=== PATIENT | female | born 1955 | race Caucasian/White ===

== ENCOUNTER → 2017-02-25 | Outpatient (REF) | payer OTHER ==
[~2017-02-25] MED LIST: CALCTAB93; DILANTIN PO; MULTIVITAMIN PO; VITAMIN C PO
== END ==
LOC: M LAB REF 17:26
PROVIDERS: ATTEND Nurse Practitioner Family
DX: M25.50 Pain in unspecified joint (principal)

== ENCOUNTER → 2017-08-16 | Outpatient (REF) | payer OTHER | LOC: M LAB REF 16:46 | PROVIDERS: ATTEND Family Medicine | DX: G40.409 Other generalized epilepsy and epileptic syndromes, not intractable, without status epilepticus (principal) ==

== ENCOUNTER → 2018-02-21 | Outpatient (REF) | payer OTHER ==
[2018-02-21 17:03] LABS: ALKALINE PHOSPHATASE 201 U/L (45-117); GAMMA GLUTAMYLTRANSPEPTIDASE 79 U/L (5-55)
[2018-02-21 17:45] LABS: % LABILE ALKALINE PHOSPHATASE 69.2 %; LABILE ALKPHOS 139 U/L; STABLE ALKPHOS 62 U/L
== END ==
LOC: M LAB REF 16:22
DX: R74.8 Abnormal levels of other serum enzymes (principal)

== ENCOUNTER → 2018-06-30 | Outpatient (REF) | payer OTHER ==
[2018-07-02 15:03] LABS: HPV HYBRID CAPTURE II Negative (Negative)
== END ==
LOC: M SFHCWAGY 11:28
DX: Z12.4 Encounter for screening for malignant neoplasm of cervix (principal)

== ENCOUNTER → 2018-08-27 | Outpatient (REF) | payer OTHER ==
[2018-08-27 13:42] LABS: PHENYTOIN (DILANTIN) 13.5 UG/ML (10.0-20.0)
[2018-08-29 00:06] LABS: LAMOTRIGINE (LAMICTAL) None Detected ug/mL (2.0-20.0)
== END ==
LOC: M LAB REF 12:05
DX: G40.89 Other seizures (principal)
CPT/HCPCS: 80185

== ENCOUNTER → 2019-06-03 | Outpatient (REF) | LOC: M LAB LCGH 10:53 | PROVIDERS: ATTEND Nurse Practitioner Family | DX: D23.0 Other benign neoplasm of skin of lip (principal); D23.72 Other benign neoplasm of skin of left lower limb, including hip ==

== ENCOUNTER → 2019-06-16 | Outpatient (CLI) | payer MEDICARE, OTHER ==
[2019-06-16 13:18] LABS: BLOOD UREA NITROGEN 16 MG/DL (7-18); CREATININE FOR GFR 0.74 MG/DL (0.55-1.30); GLOMERULAR FILTRATION RATE > 60.0 (>45)
== END ==
LOC: M LAB 12:12
PROVIDERS: ATTEND Surgery
DX: Z01.818 Encounter for other preprocedural examination (principal)

== ENCOUNTER → 2019-06-18 | Outpatient (CLI) | payer MEDICARE, OTHER ==
[~2019-06-18] MED LIST changes: +GASTROGRAFIN SOLUTION 30ML (Q9963) As Ordered ONE; +ISOVUE-370 76% 100ML VIAL (Q9967) As Ordered ONE
--- NOTE | 2019-06-18 15:18 | REP ---
REASON FOR EXAM: Abdominal pain. There are no priors for comparison. CONTRAST: 100 mL Isovue 370. The lung bases are clear. There is a small round focal area of low density seen in the left lobe of the liver lateral segment which measures 8 mm and shows no evidence of contrast enhancement. In the anterior segment of the right lobe of the liver medially there is a round low density structure which measures 1.9 cm in diameter. This shows no evidence of contrast enhancement. In the posterior segment of the right lobe of the liver medially there is a small 7 mm sized focal area of low density which is too small for precise CT characterization. It too shows no evidence of definite contrast enhancement. The larger of the two low density lesions have water density Hounsfield unit readings. There are no enhancing hepatic lesions. The gallbladder, spleen, pancreas, adrenal glands, and kidneys are within normal limits. Incidental note is made of a tiny nonenhancing focal area of low density in the inferior pole of the right renal cortex consistent with a tiny simple cortical cyst. The abdominal aorta and paraaortic regions are within normal limits. The bowel loops and their mesenteries are within normal limits. There is no free fluid or free air. There is colonic redundancy and the colon is content filled. CT PELVIS: There is marked colonic redundancy. The colon is content filled. There is no free fluid or free air. There is no evidence of a mass or adenopathy. Bone window technique throughout the exam shows the osseous structures to be within normal limits for the patient's age. IMPRESSION: There is no evidence of acute intra-abdominal or intrapelvic disease. Hepatic and renal cysts as described above. Electronically Signed by Kvng Ott DO 06/18/2019 04:43 P
== END ==
LOC: M RAD 08:28
PROVIDERS: ATTEND Surgery
DX: R10.84 Generalized abdominal pain (principal); K76.89 Other specified diseases of liver; N28.1 Cyst of kidney, acquired
CPT/HCPCS: 74177; Q9963; Q9967

== ENCOUNTER → 2019-09-25 | Outpatient (REF) | payer MEDICARE, OTHER ==
[~2019-09-25] MED LIST changes: -GASTROGRAFIN SOLUTION 30ML (Q9963) As Ordered ONE; -ISOVUE-370 76% 100ML VIAL (Q9967) As Ordered ONE
== END ==
LOC: M LAB REF 09:18
PROVIDERS: ATTEND Dermatology
DX: C44.529 Squamous cell carcinoma of skin of other part of trunk (principal); L81.4 Other melanin hyperpigmentation
CPT/HCPCS: 11102; 11103; 17000; 17003; 17110; 88305; G0463

== ENCOUNTER → 2019-10-14 | Outpatient (REF) | payer MEDICARE, OTHER | LOC: M LAB REF 09:09 | PROVIDERS: ATTEND Dermatology | DX: D04.5 Carcinoma in situ of skin of trunk (principal) ==

== ENCOUNTER → 2020-05-02 | Outpatient (REF) | payer MEDICARE, OTHER | LOC: M LAB REF 10:03 | PROVIDERS: ATTEND Family Medicine | DX: E07.9 Disorder of thyroid, unspecified (principal) ==

== ENCOUNTER → 2021-05-24 | Outpatient (CLI) | payer MEDICARE, OTHER ==
[~2021-05-24] MED LIST changes: +DILA100C PO; +LAMI25TA PO
== END ==
LOC: M LABSMTC 10:47
PROVIDERS: ATTEND Anesthesiology
DX: Z01.818 Encounter for other preprocedural examination (principal); Z11.52 Encounter for screening for COVID-19

== ENCOUNTER 2021-05-26 10:32 | Day surgery (SDC) | payer MEDICARE, OTHER ==
[~2021-05-26] VITALS: Ht 165.1 cm; Wt 56.2 kg
[~2021-05-26 10:32] MED LIST changes: +BSS IRR 500ML/OMIDRIA 4ML IRR BAG (OR ONLY) As Ordered ONE; +BSS IRR 500ML/OMIDRIA 4ML IRR BAG (OR ONLY) IO ONE; +CEFUROXIME 1MG/0.1ML INTRACAMERAL INJ As Ordered ONE; +CEFUROXIME 1MG/0.1ML INTRACAMERAL INJ ICAM ONE; +DUOVISC (0.50ML VISCOAT/0.85ML PROVISC) OPHTH KIT As Ordered ONE; +LIDOCAINE 1% SDV 5ML VIAL As Ordered ONE; +PROPARACAINE 0.5% OPHTH SOL 15ML OS ONE
[2021-05-26] MEDS: PHENYLEPHRINE 2.5% OPHTH SOL 2ML OS SCH ×3 (12:55→13:30)
[2021-05-26] MEDS: OFLOXACIN 0.3 % (OCUFLOX) OPTH SOL 5ML OS SCH ×3 (12:55→13:30)
[2021-05-26] MEDS: TROPICAMIDE 1% OPHTH SOLN 2ML OS SCH ×3 (12:55→13:30)
[2021-05-26] MEDS ORDERED: MIDAZOLAM INJ 2MG/2ML VIAL (J2250 PER 1MG) As Ordered ONE (13:20)
[2021-05-26 14:55] VITALS: BP 122/62
--- NOTE | 2021-05-26 15:42 | ROOPDOC ---
[facility] Report Of Operation Report of Operation DATE OF PROCEDURE: May PREPROCEDURE DIAGNOSES: Mature cataract left eye. POSTPROCEDURE DIAGNOSES: Same. PROCEDURE PERFORMED: Phacoemulsification cataract extraction implantation intraocular lens left eye. SURGEON: Bubba Bell MD MARBLE AND GRANITE POLISHER: None ANESTHESIA: MAC. ESTIMATED BLOOD LOSS: Approximately 0 cc mL. COMPLICATIONS: None. LENS: 20.0. diopters SPECIMENS REMOVED: None INDICATIONS: Patient experienced decreased vision associated with cataract formation. Slit-lamp examination confirmed the diagnosis. Informed consent was obtained for removal of the cataract and placement of intraocular lens. PROCEDURE NOTE: Patient was identified in the holding room and the operative eye was marked. Patient was wheeled spine the OR suite and positioned on the stretcher. The lids lashes and periocular face of the operative eye were prepped with 5% povidone iodine. The lashes were taped with a Tegaderm dressin g. A speculum was placed in the operative eye. 1 mm side-port was created. 1% preservative-free lidocaine was injected. Viscoat was injected. A 2.6 mm stepped groove clear cornea incision was made temporally. A bent cystotome needle and Utrata forceps were used to fashion a continuous curvilinear capsulorhexis. BSS was used to hydrodissect. The lens was found to rotate free ly. The lens was phacoemulsified using a divide and conquer technique. Residual cortex was removed with the I/A. Provisc was injected to expand the capsular bag. The lens was injected using the lens delivery system and positioned with a Mele hook. Residual viscoelastic was removed with the I/A. BSS was used to hydrate the corneal wound. Antibiotic prophylaxis was injected. The speculum was removed from the eye. A shield was taped over the eye. The patient was sent in excellent condition to the recovery room with a shield. BUBBA BELL M.D. May 26, 2021 15:42
[2021-06-01] MEDS ORDERED: KETO0.3S (07:51)
[2021-06-01] MEDS ORDERED: PREDOPD (07:51)
[2021-06-01] MEDS ORDERED: POLY2.5S (07:51)
== END 2021-05-26 14:22 | disposition home or self-care (01) ==
LOC: M SDC 10:32
PROVIDERS: ATTEND Ophthalmology
DX: H25.12 Age-related nuclear cataract, left eye (principal); M19.049 Primary osteoarthritis, unspecified hand; M54.9 Dorsalgia, unspecified; Z87.828 Personal history of other (healed) physical injury and trauma; G40.409 Other generalized epilepsy and epileptic syndromes, not intractable, without status epilepticus; J30.9 Allergic rhinitis, unspecified; E07.9 Disorder of thyroid, unspecified; E55.9 Vitamin D deficiency, unspecified; K59.00 Constipation, unspecified; Z88.2 Allergy status to sulfonamides; Z79.899 Other long term (current) drug therapy; Z88.1 Allergy status to other antibiotic agents; Z85.828 Personal history of other malignant neoplasm of skin
CPT/HCPCS: 66984; J1097; J2250; V2632

== ENCOUNTER → 2021-06-05 | Outpatient (CLI) | payer MEDICARE, OTHER ==
[~2021-06-05] MED LIST changes: -BSS IRR 500ML/OMIDRIA 4ML IRR BAG (OR ONLY) As Ordered ONE; -BSS IRR 500ML/OMIDRIA 4ML IRR BAG (OR ONLY) IO ONE; -CEFUROXIME 1MG/0.1ML INTRACAMERAL INJ As Ordered ONE; -CEFUROXIME 1MG/0.1ML INTRACAMERAL INJ ICAM ONE; -DUOVISC (0.50ML VISCOAT/0.85ML PROVISC) OPHTH KIT As Ordered ONE; +KETO0.3S; -LIDOCAINE 1% SDV 5ML VIAL As Ordered ONE; +POLY2.5S; +PREDOPD; -PROPARACAINE 0.5% OPHTH SOL 15ML OS ONE
== END ==
LOC: M LABSMTC 09:13
PROVIDERS: ATTEND Anesthesiology
DX: Z01.818 Encounter for other preprocedural examination (principal); Z11.52 Encounter for screening for COVID-19; L82.0 Inflamed seborrheic keratosis; L91.8 Other hypertrophic disorders of the skin; L72.0 Epidermal cyst; L57.0 Actinic keratosis; Z85.89 Personal history of malignant neoplasm of other organs and systems
CPT/HCPCS: 17000; 17003; 17110; U0003

== ENCOUNTER 2021-06-09 09:32 | Day surgery (SDC) | payer MEDICARE, OTHER ==
[~2021-06-09] VITALS: Ht 165.1 cm; Wt 55.7 kg
[~2021-06-09 09:32] MED LIST changes: +BSS IRR 500ML/OMIDRIA 4ML IRR BAG (OR ONLY) As Ordered ONE; +CEFUROXIME 1MG/0.1ML INTRACAMERAL INJ As Ordered ONE; +DUOVISC (0.50ML VISCOAT/0.85ML PROVISC) OPHTH KIT As Ordered ONE; +LIDOCAINE 1% SDV 5ML VIAL As Ordered ONE; +PROPARACAINE 0.5% OPHTH SOL 15ML OD ONE
[2021-06-09] MEDS: TROPICAMIDE 1% OPHTH SOLN 2ML OD SCH ×3 (10:15→10:31)
[2021-06-09] MEDS: PHENYLEPHRINE 2.5% OPHTH SOL 2ML OD SCH ×3 (10:15→10:31)
[2021-06-09] MEDS: OFLOXACIN 0.3 % (OCUFLOX) OPTH SOL 5ML OD SCH ×3 (10:15→10:31)
[2021-06-09] MEDS ORDERED: CEFUROXIME 1MG/0.1ML INTRACAMERAL INJ As Ordered ONE (11:20)
[2021-06-09] MEDS ORDERED: PHENYLEPHRINE 1.5%/LIDOCAINE 1% INTRAOCULAR 0.8ML SYRINGE As Ordered ONE (11:20)
[2021-06-09] MEDS ORDERED: MIDAZOLAM INJ 2MG/2ML VIAL (J2250 PER 1MG) As Ordered ONE (11:38)
[2021-06-09] MEDS ORDERED: propofoL 200 MG/20 ML VIAL As Ordered ONE (11:38)
[2021-06-09] MEDS ORDERED: fentaNYL 100 MCG/2 ML INJECTION (J3010) As Ordered ONE (11:38)
[2021-06-09 11:55] VITALS: BP 142/71
--- NOTE | 2021-06-13 18:51 | RO ---
OPERATIVE NOTE DATE OF OPERATION: 06/09/2021 PREOPERATIVE DIAGNOSIS: Mature cataract, right eye. POSTOPERATIVE DIAGNOSIS: Mature cataract, right eye. PROCEDURE: Phacoemulsification, cataract extraction and implantation of intraocular lens, right eye. SURGEON: Bubba Santillan M.D. ANESTHESIA: MAC and topical. COMPLICATIONS: None. ESTIMATED BLOOD LOSS: 0 mL. CONDITION: Excellent to recovery room with shield over the right eye. LENS: AcrySof model SN60AT, power 20.0 diopters. Phaco energy is 5.33 CDE. INDICATIONS FOR PROCEDURE: The patient experienced decreased vision associated with cataract formation. This was confirmed with the slit-lamp. Informed consent was obtained for removal of the cataract and placement of the intraocular lens. PROCEDURE NOTE: Prior to entering the operating room, the patient was identified. The right eye was marked and she was wheeled to the OR suite positioned on a stretcher. Anesthesia was initiated. Topical Tetracaine was placed in both eyes. She was prepped and draped with 5% povidone iodine to the lids and lashes. The lashes were taped with Tegaderm and a speculum was placed in the right eye. A 1 mm side port was created at the 11:30 position. 1% preservative free lidocaine was injected. Viscoat was injected. A 2.6 mm stepped, grooved clear corneal incision was made temporally. A bent cystitome needle and Utrata forceps were used to fashion a continuous curvilinear capsulorhexis. BSS was used to hydrodissect. The lens was found to rotate freely. It was phacoemulsified using a yowzyn-wvm-xqcludp technique. Residual cortex was removed with the IA. Provisc was injected to expand the capsular bag. The lens was injected using the lens delivery system and positioned using the Mele hook. Residual viscoelastic was removed with the IA. BSS was used to hydrate the corneal wound. Antibiotic prophylaxis was injected. The speculum was removed from the eye. A shield was taped over the eye. The patient was taken in excellent condition to the recovery room.
== END 2021-06-09 12:20 | disposition home or self-care (01) ==
LOC: M SDC 09:32
PROVIDERS: ATTEND Ophthalmology
DX: H25.11 Age-related nuclear cataract, right eye (principal); G40.909 Epilepsy, unspecified, not intractable, without status epilepticus; Z79.899 Other long term (current) drug therapy; M54.5 Low back pain; Z88.2 Allergy status to sulfonamides
CPT/HCPCS: 66984; J1097; J2250; J3010; V2632

== ENCOUNTER → 2021-07-05 | Outpatient (CLI) | payer MEDICARE, OTHER ==
[~2021-07-05] MED LIST changes: -BSS IRR 500ML/OMIDRIA 4ML IRR BAG (OR ONLY) As Ordered ONE; -CEFUROXIME 1MG/0.1ML INTRACAMERAL INJ As Ordered ONE; -DUOVISC (0.50ML VISCOAT/0.85ML PROVISC) OPHTH KIT As Ordered ONE; -LIDOCAINE 1% SDV 5ML VIAL As Ordered ONE; -PROPARACAINE 0.5% OPHTH SOL 15ML OD ONE
== END ==
LOC: M LABSMTC 09:58
PROVIDERS: ATTEND Anesthesiology
DX: Z01.818 Encounter for other preprocedural examination (principal); Z11.52 Encounter for screening for COVID-19

== ENCOUNTER 2021-07-10 07:29 | Day surgery (SDC) | payer MEDICARE, OTHER ==
[~2021-07-10] VITALS: Ht 167.6 cm; Wt 55.3 kg
[~2021-07-10 07:29] MED LIST changes: +NS 1,000 ML IV ONE
--- OUTSIDE RECORDS SUMMARY | 2021-07-10 07:35 | CCD | Continuity of Care Document ---
Author Author Jem MARTINEZ M.D. Organization Unknown Address [address] [facility] [address] [place] [address] Phone [phone] Care Team Providers Care Senior Applications Architect Name Role Phone Elieser Martinez MD AUTM [phone] [facility] Radiology AUTM [phone] Problems Active Problems Provider Date Seizure Samantha Varner D.O. Onset: 2011 Benign neoplasm of colon Samantha Varner D.O. Onset: 1 09/27/2011 Asthma without status asthmaticus Onset: 07/28/2012 Basal cell carcinoma of truncal skin Elieser Martinez M.D. On set: 09/16/2017 Social History Type Date Description Comments Sex Unknown ETOH Use Occasionally consumes wine ETOH Use Occasionally consumes beer Tobacco Use Start: Unknown Patient has never smoked Allergies, Adverse Reactions, Alerts Active Allergies Criticality Reaction | Severity Comments Date TeQuin Unable to assess criticality 10/12/2010 Bactrim Unable to assess criticality 10/12/2010 Medications Active Medications SIG Qnty Indications Ordering Provide r Date Vitamin C 500mg Tablets 1 by mouth every day Elieser Martinez M.D. 05/09/2021 Multiple Vitamin Tablets by mouth daily 90tabs Elieser Martinez M.D. 02/21/2018 Vitamin D3 High Potency 1000Unit C apsules 1 by mouth every day Morgan Iraheta MD 08/01 Dymista 137-50mcg/Act Suspension one spray each nostril morning and evening 69gm Elieser Martinez M.D. 07/30/2014 Lamictal 25mg Tablets take one tablet by mouth once a day 90tabs Elieser Martinez M.D. 07/28/2012 Dilantin 100mg Capsules take one capsule by mouth three times a day 270caps Elieser Martinez M.D. 09/08/1996 Calcium 600 600mg Tablets 1 by mouth every day Unknown History Medications Boniva 150mg Tablets by mouth monthly on an empty stomach (no food for 30 min after). 3tabs Uriel Martinez M.D. 02/16/2021 - 03/24/2021 Immunizations CPT Code Status Date Vaccine Lot # [id number] Given 07/08/2019 Prevnar 13 U-Flu Given 07/07/2019 Influenza,Unspecified Q2037 Given 08/01/2016 Fluvirin Virus Vaccine 57601 01 Q2037 Given 07/25/2015 Fluvirin Virus Vaccine 80532 01 14265 Given 03/05/2014 Zoster Vaccine 09741 Given 06/23/2010 Influenza Virus Vaccine 02356 Given 08/19/2006 Influenza Virus Vaccine 32884 Given 07/18/1999 Influenza Virus Vaccine Vital Signs Date Vital Result Comment 05/09/2021 1:11pm BP Systolic 126 mmHg BP Diastolic 62 mmHg Heart Rate 64 /min Height 66 inches 5'6" Weight 123.00 lb BMI (Body Mass Index) 19.9 kg/m2 02/16/2021 10:39am BP Systolic 120 mmHg BP Diastolic 68 mmHg Heart Rate 62 /min Height 66 inches 5'6" Weight 125.00 lb BMI (Body Mass Index) 20.2 kg/m2 Results Test Acquired Date Facility Test Result H/L Range Note Laboratory test finding 02/15/2021 [facility] Receiving Team Member: [facility] Morgan Iraheta [place] [id number] [phone] [phone] Free 0.69 ng/dL Low 0.76 - 1.46 Comprehensive Chem Profile 02/15/2021 [facility] Receiving Team Member: Dr Morgan Iraheta [place] [id number] [phone] Glucose 84 mg/dL 74 - 99 1 BUN 19 mg/dL High 7 - 18 Creatinine 0.8 mg/dL 0.6 - 1.3 Sodium 143 mEq/L 136 - 145 Potassium 4.4 mEq/L 3.5 - 5.1 Chloride 105 mEq/L 98 - 107 Carbon Dioxide 35 mEq/L High 21 - 32 Calcium 9.0 mg/dL 8.5 - 10.1 Alk. Phosphatase 152 mg/dL High 46 - 116 Total Bilirubin 0.3 mg/dL 0.2 - 1.0 Ast (Sgot) 23 U/L 15 - 37 Alt (SGPT) 33 U/L 12 - 78 Albumin 4.3 g/dL 3.4 - 5.0 Total Protein 6.7 g/dL 6.4 - 8.2 A/G Ratio 1.79 CALC 1.00 - 1.90 GFR >= 60 mL/min >60 GFR >= 60 mL/min >60 2 Lipid Profile 02/15/2021 [facility]ceiving Team Member: Dr Morgan Iraheta [place] [id number] [phone] Cholesterol 160 mg/dL 131 - 200 Triglycerides 39 mg/dL 30 - 150 HDL Cholesterol 56 mg/dL 35 - 60 LDL (Calculated) 96 CALC 50 - 159 Laboratory test finding 02/15/2021 [facility] Receiving Team Member: Dr Morgan Iraheta [place] [address] [phone] Thyroid Stimulating Hormone 4.74 uIU/mL High 0.3 6 - 3.74 1 100-125 mg/dL PRE-DIABET ES/FASTING >126 mg/dL DIABETES/FASTING 2 CHRONIC KIDNEY DISEASE STAGI NG PER NKF STAGE I & II GFR >= 60 NORMAL TO MILDLY DECREASED STAGE III GFR 30-59 MODERATELY DECREASED STAGE IV GFR 15-29 SEVERELY DECREASED STAGE V GFR <15 VERY LITTLE GFR LEFT ESRD GFR <15 ON RN PLACEMENT Procedures Date Code Description Status 02/16/2021 38904 Office/Outpatient Established Mo d MDM 30-39 Min Completed 10/18/2020 [id number] Bone Mineral Density Test [facility] 04/13/2020 [id number] Mammogram Completed 01/06/2019 [id number] Mammogram Completed 11/25/2018 [id number] Diabetic Retinal Eye Exam [facility] 11/03/2018 [id number] Diabetic Retinal Eye Exam [facility] 12/26/2017 [id number] Mammogram Completed 12/25/2016 [id number] Mammogram Completed 02/01/2016 [id number] Colonoscopy Completed 12/07/2015 [id number] Mammogram Completed 08/17/2015 [id number] Bone Mineral Density Test [facility] 12/01/2014 [id number] Mammogram Completed 11/10/2014 [id number] Colonoscopy Completed 11/23/2013 [id number] Mammogram Completed 11/13/2012 [id number] Mammogram Completed 11/13/2012 [id number] Bone Mineral Density Test [facility] 11/12/2011 [id number] Mammogram Completed 10/16/2010 [id number] Bone Mineral Density Test [facility] 09/30/2009 [id number] Mammogram Completed 09/23/2009 [id number] Colonoscopy Completed Medical Devices Description No Information Available Encounters Type Date Location Provider Dx Diagnosis Office Visit 02/16/2021 10:00a [facility] Elieser Martinez M.D. 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 05/09/2021 H26.9 Unspecified cataract Elieser li M.D. 05/09/2021 E07.9 Disorder of thyroid, unspecified Elieser Martinez M.D. 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 05/09/2021 K59.09 Other constipation Elieser harry M.D. 05/09/2021 J30.9 Allergic rhinitis, unspecified Rupal Martinez M.D. 05/09/2021 M81.0 Age-related osteoporosis without current pathological fracture Elieser Martinez M.D. 05/09/2021 Z85.828 Personal history of other malign ant neoplasm of skin Elieser Martinez M.D. 05/09/2021 Z86.010 Personal history of colonic poly ps Elieser Martinez M.D. 02/16/2021 E78.5 Hyperlipidemia, unspecified Mini Martinez M.D. 02/16/2021 E07.9 Disorder of thyroid, unspecified Elieser Martinez M.D. 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 02/16/2021 K59.09 Other constipation Elieser harry M.D. 02/16/2021 J30.9 Allergic rhinitis, unspecified J evelina Martinez M.D. 02/16/2021 M81.0 Age-related osteoporosis without current pathological fracture Elieser Martinez M.D. 02/16/2021 Z85.828 Personal history of other malign ant neoplasm of skin Elieser Martinez M.D. 02/16/2021 Z86.010 Personal history of colonic poly ps Elieser Martinez M.D. 02/16/2021 Z79.899 Other computer terminal operator (current) drug t herapy Elieser Martinez M.D. 02/16/2021 Z13.89 Encounter for screening for othe r disorder Elieser Martinez M.D. 02/15/2021 E78.5 Hyperlipidemia, unspecified Mini Martinez M.D. 02/15/2021 E78.5 Hyperlipidemia, unspecified Lab Schedule 02/15/2021 E07.9 Disorder of thyroid, unspecified Elieser Martinez M.D. 02/15/2021 E07.9 Disorder of thyroid, unspecified Lab Schedule Plan of Treatment Future Appointment(s):* 08/21/2021 9:30 am - [facility] 05/09/2021 - Elieser Martinez M.D.* Z01.818 Encounter for other preprocedural examination * H26.9 Unspecified cataract * E07.9 Disorder of thyroid, unspecified * G40.409 Oth generalized epilepsy, not intractable, w/o stat epi * K59.09 Other constipation * J30.9 Allergic rhinitis, unspecified * M81.0 Age-related osteoporosis w/o current pathological fracture * Z85.828 Personal history of other malignant neoplasm of skin * Z86.010 Personal history of colonic polyps * Functional Status Description No Information Available Mental Status Description No Information Available Referrals Refer to Dr Reason for Referral Status Appt Date Carlos Prater MD CONSULT FOR SCREENING COLONOSCOPY Oscar lazo Notified 04/18/[address] [place], [place] [address] [phone]
--- OUTSIDE RECORDS SUMMARY | 2021-07-10 07:35 | CCD | Continuity of Care Document ---
Author Author Jem FOSS MD Organization Unknown Address [address] [facility] [address] [place] [address] Phone [phone] Care Team Providers Care Exploitation Analyst Name Role Phone Mikel Yee MD AUTM [phone] Elieser Coffey M.D. AUTM [phone] AUTM Unavailable AUTM Unavailable Problems Description No Information Available Social History Type Date Description Comments Sex Unknown ETOH Use Rarely consumes alcohol Tobacco Use Start: Unknown Denies Smoking Recreational Drug Use Denies Drug Use Allergies and adverse reactions Active Allergies Criticality Reaction | Severity Comments Date Sulfa Unable to assess criticality Itching 06/08/2019 Medications Active Medications SIG Qnty Indications Ordering Provide r Date Fluticasone Propionate 50mcg/Act Suspension 2 sprays both sides once daily 1Month Logan quintero MD 06/19/2021 Lamotrigine 25mg Tablets Take One Tablet By Mouth Every Day Unknown Dilantin 100mg Capsules 3 by mouth daily Unknown Miralax Powder 17 g in 8 oz of water or juice by mouth every day for constipation Unkno wn Immunizations Description No Information Available Vital Signs Date Vital Result Comment 06/19/2021 1:09pm Height 66 inches 5'6" Weight 123.00 lb BMI (Body Mass Index) 19.9 kg/m2 [place] Body Weight 130 lb Weight 55.793 kg BSA (Body Surface Area) 1.63 m2 06/08/2019 1:15pm BP Systolic 120 mmHg BP Diastolic 75 mmHg Heart Rate 62 /min Height 66 inches 5'6" Weight 126.12 lb BMI (Body Mass Index) 20.4 kg/m2 [place] Body Weight 130 lb Weight 57.210 kg BSA (Body Surface Area) 1.64 m2 Results Description No Information Available Procedures Date Code Description Status 06/19/2021 50971 Office/Outpatient New Moderate M DM 45-59 Minutes Completed Medical Devices Description No Information Available Encounters Type Date Location Provider Dx Diagnosis Office Visit 06/19/2021 1:10p [facility] Logan Foss MD H90.3 Sensorineural hearing loss, bilateral J30.9 Allergic rhinitis, unspecifi ed J34.2 Deviated nasal septum Assessments Date Code Description Provider 06/19/2021 H90.3 Sensorineural hearing loss, bila teral Logan Foss MD 06/19/2021 J30.9 Allergic rhinitis, unspecified N ivelisse Foss MD 06/19/2021 J34.2 Deviated nasal septum Logan quintero MD Plan of Treatment 06/19/2021 - Logan Foss MD* H90.3 Sensorineural hearing loss, bilateral * J30.9 Allergic rhinitis, unspecified * J34.2 Deviated nasal septum * All * New Medication:* Fluticasone Propionate 50 mcg/Act - 2 sprays both sides once daily Functional Status Description No Information Available Mental Status Description No Information Available Referrals Refer to Dr Reason for Referral Status Appt Logan Foss M.D. ALLERGIC RHINITIS, FLUID IN EARS Closed 06/19/[address] [address] [phone]
--- OUTSIDE RECORDS SUMMARY | 2021-07-10 07:35 | CCD | Continuity of Care Document ---
Author Author Jem FOSS MD Organization Unknown Address [address] [facility] [address] [place] [address] Phone [phone] Care Team Providers Care Printed Circuit Board Designer Name Role Phone Mikel Yee MD AUTM [phone] Elieser Coffey M.D. AUTM [phone] AUTM Unavailable AUTM Unavailable Problems Description No Information Available Social History Type Date Description Comments Sex Unknown ETOH Use Rarely consumes alcohol Tobacco Use Start: Unknown Denies Smoking Recreational Drug Use Denies Drug Use Allergies, Adverse Reactions, Alerts Active Allergies Criticality [...] lb BMI (Body Mass Index) 19.9 kg/m2 [place] Body Weight 130 lb Weight 55.793 kg BSA (Body Surface Area) 1.63 m2 06/08/2019 1:15pm BP Systolic 120 mmHg BP Diastolic 75 mmHg Heart Rate 62 /min Height 66 inches 5'6" Weight 126.12 lb BMI (Body Mass Index) 20.4 kg/m2 [place] Body Weight 130 lb Weight 57.210 kg BSA (Body Surface Area) 1.64 m2 Results Description No Information Available Procedures Description No Information Available Medical Devices Description No Information Available Encounters Description No Information Available Assessments Description No Information Available Plan of Treatment No Information Available Functional Status Description No Information Available Mental Status Description No Information Available Referrals Refer to Reason for Referral Status Appt Date Logan Foss M.D. ALLERGIC RHINITIS, FLUID IN EARS Scheduled 06/19/[address] [place] [address] [phone]
--- OUTSIDE RECORDS SUMMARY | 2021-07-10 07:35 | CCD | Continuity of Care Document ---
Author Author Jem MARTINEZ M.D. Organization Unknown Address [address] [facility] [address] [place] [address] Phone [phone] Care Team Providers Care Disability Program Navigator Name Role Phone Elieser Martinez MD AUTM [phone] [facility] Radiology AUTM [phone] Problems Active Problems Provider Date Seizure Samantha [...] Influenza,Unspecified Q2037 Given 08/01/2016 Fluvirin Virus Vaccine 95511 01 Q2037 Given 07/25/2015 Fluvirin Virus Vaccine 60016 01 28865 Given 03/05/2014 Zoster Vaccine 91011 Given 06/23/2010 Influenza Virus Vaccine 14200 Given 08/19/2006 Influenza Virus Vaccine 03467 Given 07/18/1999 Influenza Virus Vaccine Vital Signs [...] H/L Range Note Laboratory test finding 02/15/2021 [place] [facility] Forge Shop Supervisor: Dr Morgan Iraheta [place] [address] [phone] T4 Free 0.69 ng/dL Low 0.76 - 1.46 Comprehensive Chem Profile 02/15/2021 [place] [facility] Forge Shop Supervisor: Dr Morgan Iraheta [place], [place] [address] [phone] Glucose 84 mg/dL 74 - 99 1 [...] 60 mL/min >60 2 Lipid Profile 02/15/2021 [place] Forge Shop Supervisor: Dr Morgan Iraheta [place], [place] [address] [phone] Cholesterol 160 mg/dL 131 - 200 Triglycerides 39 mg/dL 30 - 150 HDL Cholesterol 56 mg/dL 35 - 60 LDL (Calculated) 96 CALC 50 - 159 Laboratory test finding 02/15/2021 [place] [employer] [facility] [facility] Forge Shop Supervisor: Dr Morgan Iraheta [place], [place] [address] [phone] Thyroid Stimulating Hormone 4.74 uIU/mL High 0.3 6 - 3.74 1 100-125 mg/dL PRE-DIABET ES/FASTING >126 mg/dL DIABETES/FASTING 2 CHRONIC KIDNEY DISEASE STAGI NG PER NKF STAGE I & II GFR >= 60 NORMAL TO MILDLY DECREASED STAGE III GFR 30-59 MODERATELY DECREASED STAGE IV GFR 15-29 SEVERELY DECREASED STAGE V GFR <15 VERY LITTLE GFR LEFT ESRD GFR <15 ON WEB CONTENT MANAGER Procedures Date Code Description Status 05/09/2021 74833 EKG/Interpretation & Report Comp leted 05/09/2021 80591 Office/Outpatient Established Mo d MDM 30-39 Min Completed 02/16/2021 84960 Office/Outpatient Established Mo d MDM 30-39 Min Completed 10/18/2020 [id number] Bone Mineral Density Test Comple [facility] 04/13/2020 [id number] Mammogram Completed 01/06/2019 [id number] Mammogram Completed 11/25/2018 [id number] Diabetic Retinal Eye Exam Comple [facility] 11/03/2018 [id number] Diabetic Retinal Eye Exam Comple [facility] 12/26/2017 [id number] Mammogram Completed 12/25/2016 [id number] Mammogram Completed 02/01/2016 [id number] Colonoscopy Completed 12/07/2015 [id number] Mammogram Completed 08/17/2015 [id number] Bone Mineral Density Test Comple [facility] 12/01/2014 [id number] Mammogram Completed 11/10/2014 [id number] Colonoscopy Completed 11/23/2013 [id number] Mammogram Completed 11/13/2012 [id number] Mammogram Completed 11/13/2012 [id number] Bone Mineral Density Test Comple [facility] 11/12/2011 [id number] Mammogram Completed 10/16/2010 [id number] Bone Mineral Density Test Comple [facility] 09/30/2009 [id number] Mammogram Completed 09/23/2009 [id number] Colonoscopy Completed Medical Devices Description No Information Available Encounters Type Date Location Provider Dx Diagnosis Office Visit 05/09/2021 [facility] Z01.818 Encounter for other preprocedural examin ation H26.9 Unspecified cataract E07.9 Disorder of thyroid, unspeci fied G40.409 Oth generalized epilepsy, no t intractable, w/o stat epi K59.09 Other constipation J30.9 Allergic rhinitis, unspecifi ed M81.0 Age-related osteoporosis w/o current pathological fracture Z85.828 Personal history of other ma lignant neoplasm of skin Z86.010 Personal history of colonic polyps Office Visit 02/16/2021 10:00a [facility] E78.5 Hyperlipidemia, unspecified E07.9 Disorder of thyroid, unspeci fied G40.409 Oth generalized epilepsy, no t intractable, w/o stat epi K59.09 Other constipation J30.9 Allergic rhinitis, unspecifi ed M81.0 Age-related osteoporosis w/o current pathological fracture Z85.828 Personal history of other ma lignant neoplasm of skin Z86.010 Personal history of colonic polyps Z79.899 Other intermediate card tender (current) dr tran therapy Z13.89 Encounter for screening for other disorder Assessments Date Code Description Provider 05/09/2021 Z01.818 Encounter for other preprocedura l examination Elieser Martinez M.D. 05/09/2021 H26.9 Unspecified cataract Elieser MaverickWilliam li M.D. 05/09/2021 E07.9 Disorder of thyroid, [...] harry M.D. 02/16/2021 J30.9 Allergic rhinitis, unspecified Rupal Martinez M.D. 02/16/2021 M81.0 Age-related osteoporosis without current pathological fracture Elieser Martinez M.D. 02/16/2021 Z85.828 Personal history of other malign ant neoplasm of skin Elieser Martinez M.D. 02/16/2021 Z86.010 Personal history of colonic poly ps Elieser Martinez M.D. 02/16/2021 Z79.899 Other prison (current) drug t herapy Elieser Martinez M.D. 02/16/2021 Z13.89 Encounter for screening for othe r disorder Elieser Martinez M.D. 02/15/2021 E78.5 Hyperlipidemia, unspecified Mini Martinez M.D. 02/15/2021 E78.5 Hyperlipidemia, unspecified Lab Schedule 02/15/2021 E07.9 Disorder of thyroid, unspecified Elieser Martinez M.D. 02/15/2021 E07.9 Disorder of thyroid, unspecified Lab Schedule Plan of Treatment Future Appointment(s):* 08/21/2021 9:30 am - [facility] 02/16/2021 - Elieser Martinez M.D.* E78.5 Hyperlipidemia, unspecified * E07.9 Disorder of thyroid, unspecified * G40.409 Oth generalized epilepsy, not intractable, w/o stat epi * K59.09 Other constipation * J30.9 Allergic rhinitis, unspecified * M81.0 Age-related osteoporosis w/o current pathological fracture * Z85.828 Personal history of other malignant neoplasm of skin * Z86.010 Personal history of colonic polyps * Z79.899 Other prison (current) drug therapy * Z13.89 Encounter for screening for other disorder * * Comments:* 1. Hyperlipidemia: Good results with diet alone, she will continue to watch her diet. We will continue to monitor.2. Thyroid disorder: Subclinical hypothyroidism. Long discussion regarding thyroids. She continues to be quite hesitant to take anything, but she understands prison issues that may be apparent.3. Oth generalized epilepsy, not intractable, w/o stat epi: Great results on her present medications. We will continue to monitor.4. Other constipation: Excellent results with Miralax on a daily basis, will continue and monitor.5. Other intermediate card tender (current) drug therapy: Anti seizure medications continued and we have discussed risks versus benefits.6. Allergic rhinitis: Good results with OTC med as needed.7. Personal history of other malignant neoplasm of skin: She will continue to follow up with [facility] Dermatology with history of BCC.8. Personal history of colonic polyps: Patient had tubular villous polyps in 2016, she will follow up with Dr. Carlos Prater and understands the importance.9. Age-related osteoporosis w/o current pathological fracture: We have discussed her recent DEXA scan result in detail. Education was done. Possible side effects and MOA discussed (Boniva) which she understands.She will use Boniva as directed. We will monitor.Ongoing cares: I am going to see her again in 6 months with CMP, TSH and FT4. If she has new problems or issues sooner she will let us know. Functional Status Description No Information Available Mental Status Description No Information Available Referrals Refer to Reason for Referral Status Appt Date Logan Foss MD CONSULT FOR ALLERGIC RHINITIS, FLUID IN EARS Cr eated [facility] [address] [address] [phone] Carlos Prater MD CONSULT FOR SCREENING COLONOSCOPY Oscar lazo Notified 04/18/2021 [address] [facility] [address] [phone]
--- OUTSIDE RECORDS SUMMARY | 2021-07-10 07:35 | CCD | Continuity of Care Document ---
Author Author Jem MARTINEZ M.D. Organization Unknown Address [address] [facility] [address] [place] [address] Phone [phone] Care Team Providers Care Site Operations Manager Name Role Phone Elieser Martinez MD AUTM [phone] [facility] Radiology AUTM [phone] Problems Active Problems Provider Date Seizure Samantha [...] Influenza,Unspecified Q2037 Given 08/01/2016 Fluvirin Virus Vaccine 92594 01 Q2037 Given 07/25/2015 Fluvirin Virus Vaccine 60864 01 21483 Given 03/05/2014 Zoster Vaccine 57927 Given 06/23/2010 Influenza Virus Vaccine 45947 Given 08/19/2006 Influenza Virus Vaccine 75057 Given 07/18/1999 Influenza Virus Vaccine Vital Signs [...] H/L Range Note Laboratory test finding 02/15/2021 [place] [facility] Spar Machine Operator: Dr Morgan Iraheta [place], [place] [address] [phone] T4 Free 0.69 ng/dL Low 0.76 - 1.46 Comprehensive Chem Profile 02/15/2021 [place] Spar Machine Operator: Dr Morgan Iraheta [place], [place] [address] [phone] Glucose 84 mg/dL 74 - 99 1 [...] 60 mL/min >60 2 Lipid Profile 02/15/2021 [facility] Spar Machine Operator: Dr Morgan Iraheta [place], [place] [address] [phone] Cholesterol 160 mg/dL 131 - 200 Triglycerides 39 mg/dL 30 - 150 HDL Cholesterol 56 mg/dL 35 - 60 LDL (Calculated) 96 CALC 50 - 159 Laboratory test finding 02/15/2021 [place] [facility] [employer] [facility] [facility] Spar Machine Operator: Dr Morgan Iraheta [place], [place] [address] [phone] Thyroid Stimulating Hormone 4.74 uIU/mL High 0.3 6 - 3.74 1 100-125 mg/dL PRE-DIABET ES/FASTING >126 mg/dL DIABETES/FASTING 2 CHRONIC KIDNEY DISEASE STAGI NG PER NKF STAGE I & II GFR >= 60 NORMAL TO MILDLY DECREASED STAGE III GFR 30-59 MODERATELY DECREASED STAGE IV GFR 15-29 SEVERELY DECREASED STAGE V GFR <15 VERY LITTLE GFR LEFT ESRD GFR <15 ON GAS MAKER HELPER Procedures Date Code Description Status 02/16/2021 56031 Office/Outpatient Established Mo d MDM 30-39 Min Completed 10/18/2020 [id number] Bone Mineral Density Test Comple [facility] 04/13/2020 [id number] Mammogram Completed 01/06/2019 [id number] Mammogram Completed 11/25/2018 [id number] Diabetic Retinal Eye Exam Comple [facility] 11/03/2018 [id number] Diabetic Retinal Eye Exam Comple [facility] 12/26/2017 [id number] Mammogram Completed 12/25/2016 [id number] Mammogram Completed 02/01/2016 [id number] Colonoscopy Completed 12/07/2015 [id number] Mammogram Completed 08/17/2015 [id number] Bone Mineral Density Test Comple [facility] 12/01/2014 [id number] Mammogram Completed 11/10/2014 [id number] Colonoscopy Completed 11/23/2013 [id number] Mammogram Completed 11/13/2012 [id number] Mammogram Completed 11/13/2012 [id number] Bone Mineral Density Test Comple [facility] 11/12/2011 [id number] Mammogram Completed 10/16/2010 [id number] Bone Mineral Density Test Comple [facility] 09/30/2009 [id number] Mammogram Completed 09/23/2009 [id number] Colonoscopy Completed Medical Devices Description No Information Available Encounters Type Date Location Provider Dx Diagnosis Office Visit 02/16/2021 10:00a [facility] Elieser Martinez M.D. E78.5 Hyperlipidemia, unspecified E07.9 Disorder of thyroid, unspeci fied G40.409 Oth generalized epilepsy, no t intractable, w/o stat epi K59.09 Other constipation J30.9 Allergic rhinitis, unspecifi ed M81.0 Age-related osteoporosis w/o current pathological fracture Z85.828 Personal history of other ma lignant neoplasm of skin Z86.010 Personal history of colonic polyps Z79.899 Other residential (current) dr chelsea therapy Z13.89 Encounter for [...] ps Elieser Martinez M.D. 02/16/2021 Z79.899 Other intermediate school teacher (current) drug t herapy Elieser Martinez M.D. 02/16/2021 Z13.89 Encounter for screening for othe r disorder Elieser Martinez M.D. 02/15/2021 E78.5 Hyperlipidemia, unspecified Mini Martinez M.D. 02/15/2021 E78.5 Hyperlipidemia, unspecified Lab Schedule 02/15/2021 E07.9 Disorder of thyroid, unspecified Elieser Martinez M.D. 02/15/2021 E07.9 Disorder of thyroid, unspecified Lab Schedule Plan of Treatment Future Appointment(s):* 08/21/2021 9:30 am - [facility] 05/09/2021 - Elieser Martinez M.D.* [...] FOR SCREENING COLONOSCOPY Oscar lazo Notified 04/18/[address] [place], [place] [address] [phone]
--- OUTSIDE RECORDS SUMMARY | 2021-07-10 07:35 | CCD | Continuity of Care Document ---
Author Author Jem MARTINEZ M.D. Organization Unknown Address [address] [facility] [address] [place] [address] Phone [phone] Care Team Providers Care Sample Shoe Inspector And Reworker Name Role Phone Elieser Martinez MD AUTM [phone] [facility] Radiology AUTM [phone] Problems Active Problems Provider Date Seizure Samantha [...] Influenza,Unspecified Q2037 Given 08/01/2016 Fluvirin Virus Vaccine 72845 01 Q2037 Given 07/25/2015 Fluvirin Virus Vaccine 19990 01 96635 Given 03/05/2014 Zoster Vaccine 72571 Given 06/23/2010 Influenza Virus Vaccine 79133 Given 08/19/2006 Influenza Virus Vaccine 24353 Given 07/18/1999 Influenza Virus Vaccine Vital Signs [...] H/L Range Note Laboratory test finding 02/15/2021 [place] [facility] Merchandise Distributor: Dr Morgan Iraheta [place], [place] [address] [phone] T4 Free 0.69 ng/dL Low 0.76 - 1.46 Comprehensive Chem Profile 02/15/2021 [place] Tran Merchandise Distributor: Dr Morgan Iraheta [place], [place] [address] [phone] Glucose 84 mg/dL 74 - 99 1 [...] 60 mL/min >60 2 Lipid Profile 02/15/2021 [facility] Merchandise Distributor: Dr Morgan Iraheta [place], [place] [address] [phone] Cholesterol 160 mg/dL 131 - 200 Triglycerides 39 mg/dL 30 - 150 HDL Cholesterol 56 mg/dL 35 - 60 LDL (Calculated) 96 CALC 50 - 159 Laboratory test finding 02/15/2021 [place] Senior Software Tester [facility]carlos, pc Merchandise Distributor: Dr Morgan Iraheta [place], [place] [address] [phone] Thyroid Stimulating Hormone 4.74 uIU/mL High 0.3 6 - 3.74 1 100-125 mg/dL PRE-DIABET ES/FASTING >126 mg/dL DIABETES/FASTING 2 CHRONIC KIDNEY DISEASE STAGI NG PER NKF STAGE I & II GFR >= 60 NORMAL TO MILDLY DECREASED STAGE III GFR 30-59 MODERATELY DECREASED STAGE IV GFR 15-29 SEVERELY DECREASED STAGE V GFR <15 VERY LITTLE GFR LEFT ESRD GFR <15 ON FLAVORER Procedures Date Code Description Status 02/16/2021 70847 Office/Outpatient Established Mo d MDM 30-39 Min Completed 10/18/2020 [id number] Bone Mineral Density Test Comple [facility] 04/13/2020 [id number] Mammogram Completed 01/06/2019 [id number] Mammogram Completed 11/25/2018 [id number] Diabetic Retinal Eye Exam Comple [facility] 11/03/2018 [id number] Diabetic Retinal Eye Exam Comple [facility] 12/26/2017 [id number] Mammogram Completed 12/25/2016 [id number] Mammogram Completed 02/01/2016 [id number] Colonoscopy Completed 12/07/2015 [id number] Mammogram Completed 08/17/2015 [id number] Bone Mineral Density Test Comple [facility] 12/01/2014 [id number] Mammogram Completed 11/10/2014 [id number] Colonoscopy Completed 11/23/2013 [id number] Mammogram Completed 11/13/2012 [id number] Mammogram Completed 11/13/2012 [id number] Bone Mineral Density Test Comple [facility] 11/12/2011 [id number] Mammogram Completed 10/16/2010 [id number] Bone Mineral Density Test Comple [facility] 09/30/2009 [id number] Mammogram Completed 09/23/2009 [id number] Colonoscopy Completed Medical Devices Description No Information Available Encounters Type Date Location Provider Dx Diagnosis Office Visit 02/16/2021 10:00a [facility] Elieser Martinez M.D. E78.5 Hyperlipidemia, unspecified E07.9 Disorder of thyroid, unspeci fied G40.409 Oth generalized epilepsy, no t intractable, w/o stat epi K59.09 Other constipation J30.9 Allergic rhinitis, unspecifi ed M81.0 Age-related osteoporosis w/o current pathological fracture Z85.828 Personal history of other ma lignant neoplasm of skin Z86.010 Personal history of colonic polyps Z79.899 Other nursing home (current) dr chelsea therapy Z13.89 Encounter for [...] ps Elieser Martinez M.D. 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 02/16/2021 Z13.89 Encounter for screening for othe r disorder Elieser Martinez M.D. 02/15/2021 E78.5 Hyperlipidemia, unspecified Mini aMrtinez M.D. 02/15/2021 E78.5 Hyperlipidemia, unspecified Lab Schedule 02/15/2021 E07.9 Disorder of thyroid, unspecified Elieser Martinez M.D. 02/15/2021 E07.9 Disorder of thyroid, unspecified Lab Schedule Plan of Treatment Future Appointment(s):* 08/21/2021 9:30 am - [facility] 05/09/2021 - Elieser Martinez M.D.* Z01.818 [...] FOR SCREENING COLONOSCOPY Oscar lazo Notified 04/18/[address] [place], [place] [address] [phone]
--- OUTSIDE RECORDS SUMMARY | 2021-07-10 07:35 | CCD | Continuity of Care Document ---
Author Author Jem MARTINEZ M.D. Organization Unknown Address [address] [facility] [address] [place] [address] Phone [phone] Care Team Providers Care Edge Setter Name Role Phone Elieser Martinez MD AUTM [phone] [facility] Radiology AUTM [phone] Problems Active Problems Provider Date Seizure Samantha [...] Use Start: Unknown Patient has never smoked Allergies and adverse reactions Active Allergies Criticality [...] Influenza,Unspecified Q2037 Given 08/01/2016 Fluvirin Virus Vaccine 87525 01 Q2037 Given 07/25/2015 Fluvirin Virus Vaccine 49969 01 93312 Given 03/05/2014 Zoster Vaccine 24637 Given 06/23/2010 Influenza Virus Vaccine 02557 Given 08/19/2006 Influenza Virus Vaccine 87730 Given 07/18/1999 Influenza Virus Vaccine Vital Signs [...] H/L Range Note Laboratory test finding 02/15/2021 [place] [facility] Lap Layer: [place] [address] [phone] T4 Free 0.69 ng/dL Low 0.76 - 1.46 Comprehensive Chem Profile 02/15/2021 [place] Tr[facility] Lap Layer: [place] [address] [phone] Glucose 84 mg/dL 74 - 99 1 [...] 60 mL/min >60 2 Lipid Profile 02/15/2021 [facility] Lap Layer: [place] [address] [phone] Cholesterol 160 mg/dL 131 - 200 Triglycerides 39 mg/dL 30 - 150 HDL Cholesterol 56 mg/dL 35 - 60 LDL (Calculated) 96 CALC 50 - 159 Laboratory test finding 02/15/2021 [place] [employer] Specialist [facility] pc Lap Layer: [place] [address] [phone] Thyroid Stimulating Hormone 4.74 uIU/mL High 0.3 6 - 3.74 1 100-125 mg/dL PRE-DIABET ES/FASTING >126 mg/dL DIABETES/FASTING 2 CHRONIC KIDNEY DISEASE STAGI NG PER NKF STAGE I & II GFR >= 60 NORMAL TO MILDLY DECREASED STAGE III GFR 30-59 MODERATELY DECREASED STAGE IV GFR 15-29 SEVERELY DECREASED STAGE V GFR <15 VERY LITTLE GFR LEFT ESRD GFR <15 ON REVERSER Procedures Date Code Description Status 05/09/2021 17408 EKG/Interpretation & Report Comp leted 05/09/2021 81976 Office/Outpatient Established Mo d MDM 30-39 Min Completed 02/16/2021 67188 Office/Outpatient Established Mo d MDM 30-39 Min Completed 10/18/2020 [id number] Bone Mineral Density Test Comple [facility] 04/13/2020 [id number] Mammogram Completed 01/06/2019 [id number] Mammogram Completed 11/25/2018 [id number] Diabetic Retinal Eye Exam Comple [facility] 11/03/2018 [id number] Diabetic Retinal Eye Exam Comple [facility] 12/26/2017 [id number] Mammogram Completed 12/25/2016 [id number] Mammogram Completed 02/01/2016 [id number] Colonoscopy Completed 12/07/2015 [id number] Mammogram Completed 08/17/2015 [id number] Bone Mineral Density Test Comple [facility] 12/01/2014 [id number] Mammogram Completed 11/10/2014 [id number] Colonoscopy Completed 11/23/2013 [id number] Mammogram Completed 11/13/2012 [id number] Mammogram Completed 11/13/2012 [id number] Bone Mineral Density Test Comple [facility] 11/12/2011 [id number] Mammogram Completed 10/16/2010 [id number] Bone Mineral Density Test Comple [facility] 09/30/2009 [id number] Mammogram Completed 09/23/2009 [id number] Colonoscopy Completed Medical Devices Description No Information Available Encounters Type Date Location Provider Dx Diagnosis Office Visit 05/09/2021 [facility]p [facility] Z01.818 Encounter for [...] of colonic polyps Office Visit 02/16/2021 10:00a [facility] M.[facility]. 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 02/16/2021 Z79.899 Other detention (current) drug t herapy Elieser Martinez M.D. 02/16/2021 Z13.89 Encounter for screening for othe r disorder Elieser Martinez M.D. 02/15/2021 E78.5 Hyperlipidemia, unspecified Mini Martinez M.D. 02/15/2021 E78.5 Hyperlipidemia, unspecified Lab Schedule 02/15/2021 E07.9 Disorder of thyroid, unspecified Elieser Martinez M.D. 02/15/2021 E07.9 Disorder of thyroid, unspecified Lab Schedule Plan of Treatment Future Appointment(s):* 08/21/2021 9:30 am - [facility] 02/16/2021 - Elieser Martinez M.D.* E78.5 Hyperlipidemia, unspecified * E07.9 Disorder of thyroid, unspecified * G40.409 Oth generalized epilepsy, not intractable, w/o stat epi * K59.09 Other constipation * J30.9 Allergic rhinitis, unspecified * M81.0 Age-related osteoporosis w/o current pathological fracture * Z85.828 Personal history of other malignant neoplasm of skin * Z86.010 Personal history of colonic polyps * Z79.899 Other detention (current) drug therapy * Z13.89 Encounter for screening for other disorder * * Comments:* 1. Hyperlipidemia: Good results with diet alone, she will continue to watch her diet. We will continue to monitor.2. Thyroid disorder: Subclinical hypothyroidism. Long discussion regarding thyroids. She continues to be quite hesitant to take anything, but she understands detention issues that may be apparent.3. Oth generalized epilepsy, not intractable, w/o stat epi: Great results on her present medications. We will continue to monitor.4. Other constipation: Excellent results with Miralax on a daily basis, will continue and monitor.5. Other detention (current) drug therapy: Anti seizure medications continued and we have discussed risks versus benefits.6. Allergic rhinitis: Good results with OTC med as needed.7. Personal history of other malignant neoplasm of skin: She will continue to follow up with [facility] Dermatology with history of BCC.8. [...] CONSULT FOR ALLERGIC RHINITIS, FLUID IN EARS Zackary auguste Notified 06/06/2021 [facility] [address] [address] [phone] Carlos Prater MD CONSULT FOR SCREENING COLONOSCOPY Oscar lazo Notified 04/18/[address] [facility] [id number] [phone]
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
--- OUTSIDE RECORDS SUMMARY | 2021-07-10 07:35 | CCD ---
Continuity of Care Document (CCD) Created on: 04/18/2021 Jem Rajput Addi External Reference #: [id number] : [id number] Sex: Female Author Author Jem PRATER M.D. Organization Unknown Address [address] [place] [address] Phone [phone] Care Team Providers Care Chute Puller Name Role Phone Morgan Iraheta M.D. AUTM [phone] Elieser Coffey M.D. AUTM [phone] Problems Active Problems Provider Date Screening for malignant neoplasm of colon Carlos westbrook M.D. Onset: 04/18/2021 Constipation Carlos Prater M.D. Onset: 05/14/20 19 History of adenomatous polyp of colon Bishnu Foreman Onset: 10/26/2014 Social History Type Date Description Comments Sex Unknown ETOH Use Occasionally Tobacco Use Start: Unknown Patient has never smoked Allergies, Adverse Reactions, Alerts Active Allergies Reaction Severity Comments Date Sulfa Antibiotics Itch 10/26/2014 Medications Active Medications SIG Qnty Indications Ordering Provide r Date Sutab [id number] Tablets as directed 1box Carlos Prater M.D. 04/18/2021 Dilantin 300mg Capsules Unknown Linzess 290mcg Capsules 1 cap by mouth every morning Unknown Polyethylene Glycol 3350 3350NF Packet Unknown Multiple Vitamin Tablets Unknown Calcium 600 600mg Tablets Unknown Lamotrigine 25mg Tablets Take One Tablet By Mouth Once A Day Unknown Immunizations Description No Information Available Vital Signs Date Vital Result Comment 04/18/2021 9:34am Height 66 inches 5'6" Weight 123.00 lb BP Systolic 126 mmHg BP Diastolic 63 mmHg Heart Rate 69 /min BMI (Body Mass Index) 19.9 kg/m2 Weight 55.793 kg Body Temperature 96.8 F 05/14/2019 11:41am Height 66 inches 5'6" Weight 124.00 lb BP Systolic 123 mmHg BP Diastolic 79 mmHg Heart Rate 59 /min BMI (Body Mass Index) 20.0 kg/m2 Weight 56.246 kg Results Description No Information Available Procedures Date Code Description Status 04/18/2021 13403 Office/Outpatient Established Lo w MDM 20-29 Min Completed Medical Devices Description No Information Available Encounters Type Date Location Provider Dx Diagnosis Office Visit 04/18/2021 9:15a Main Office Carlos Prater M.D. Z 86.010 Personal history of colonic polyps Assessments Date Code Description Provider 04/18/2021 Z86.010 Personal history of colonic poly ps Carlos Prater M.D. Plan of Treatment Future Appointment(s):* 06/26/2021 6:00 am - [facility] at Main Office * 07/10/2021 8:30 am - Carlos Prater M.D. 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 Last scope was in 2015. No c/o abdominal pain, weight loss, change in bowel habits, or rectal bleeding. Last scope showed tubular adenomas. Constipation has resolved with Miralax. Plan:1.Schedule patient for Colonoscopy. 2. Informed consent given.3. Advised to stop asa, plavix,and anticoagulation 3 to 7 days prior to the procedures. Functional Status Description No Information Available Mental Status Description No Information Available Referrals Description No Information Available
--- OUTSIDE RECORDS SUMMARY | 2021-07-10 07:36 | CCD ---
Author Author [facility] Organization [facility] Address Unknown Phone Unavailable Care Team Providers Care Butter Melter Name Role Phone Maverick Coffey MD Unavailable Unavailable Maverick Coffey MD Unavailable Unavailable Maverick Coffey MD Unavailable Unavailable Maverick Coffey MD Unavailable Unavailable Maverick Coffey MD Unavailable Unavailable Maverick Coffey MD Unavailable Unavailable Maverick Coffey MD Unavailable Unavailable Maverick Coffey MD Unavailable Unavailable Maverick Coffey MD Unavailable Unavailable Maverick Coffey MD Unavailable Unavailable Maverick Coffey MD Unavailable Unavailable Maverick Coffey MD Unavailable Unavailable Maverick Coffey MD Unavailable Unavailable Maverick Coffey MD Unavailable Unavailable Maverick Coffey MD Unavailable Unavailable Maverick Coffey MD Unavailable Unavailable Maverick Coffey MD Unavailable Unavailable Maverick Coffey MD Unavailable Unavailable Maverick Coffey MD Unavailable Unavailable Maverick Coffey MD Unavailable Unavailable Maverick Coffey MD Unavailable Unavailable Maverick Coffey MD Unavailable Unavailable Maverick Coffey MD Unavailable Unavailable Maverick Coffey MD Unavailable Unavailable Maverick Coffey MD Unavailable Unavailable Maverick Coffey MD Unavailable Unavailable Maverick Coffey MD Unavailable Unavailable Maverick Coffey MD Unavailable Unavailable Maverick Coffey MD Unavailable Unavailable Maverick Coffey MD Unavailable Unavailable Maverick Coffey MD Unavailable Unavailable Maverick Coffey MD Unavailable Unavailable Maverick Coffey MD Unavailable Unavailable Maverick Coffey MD Unavailable Unavailable Maverick Coffey MD Unavailable Unavailable Maverick Coffey MD Unavailable Unavailable Maverick Coffey MD Unavailable Unavailable Maverick Coffey MD Unavailable Unavailable Maverick Coffey MD Unavailable Unavailable Maverick Coffey MD Unavailable Unavailable Maverick Coffey MD Unavailable Unavailable Maverick Coffey MD Unavailable Unavailable Maverick Coffey MD Unavailable Unavailable Maverick Coffey MD Unavailable Unavailable Maverick Coffey MD Unavailable Unavailable Maverick Coffey MD Unavailable Unavailable Maverick Coffey MD Unavailable Unavailable Maverick Coffey MD Unavailable Unavailable Maverick Coffey MD Unavailable Unavailable Maverick Coffey MD Unavailable Unavailable Maverick Coffey MD Unavailable Unavailable Maverick Coffey MD Unavailable Unavailable Maverick Coffey MD Unavailable Unavailable Maverick Coffey MD Unavailable Unavailable Maverick Coffey MD Unavailable Unavailable Maverick Coffey MD Unavailable Unavailable Maverick Coffey MD Unavailable Unavailable Maverick Coffey MD Unavailable Unavailable Maverick Coffey MD Unavailable Unavailable Maverick Coffey MD Unavailable Unavailable Maverick Coffey MD Unavailable Unavailable Maverick Coffey MD Unavailable Unavailable Maverick Coffey MD Unavailable Unavailable Maverick Coffey MD Unavailable Unavailable Maverick Coffey MD Unavailable Unavailable Maverick Coffey MD Unavailable Unavailable Maverick Coffey MD Unavailable Unavailable Maverick Coffey MD Unavailable Unavailable Maverick Coffey MD Unavailable Unavailable Maverick Coffey MD Unavailable Unavailable Maverick Coffey MD Unavailable Unavailable Maverick Coffey MD Unavailable Unavailable Maverick Coffey MD Unavailable Unavailable Maverick Coffey MD Unavailable Unavailable Maverick Coffey MD Unavailable Unavailable Maverick Coffey MD Unavailable Unavailable Maverick Coffey MD Unavailable Unavailable Hugh Prater MD Unavailable Unavailable Hugh Prater MD Unavailable Unavailable Hugh Prater MD Unavailable Unavailable Hugh Pratre MD Unavailable Unavailable Hugh Prater MD Unavailable Unavailable Hugh Prater MD Unavailable Unavailable Hugh Prater MD Unavailable Unavailable Hugh Prater MD Unavailable Unavailable Hugh Prater MD Unavailable Unavailable Hugh Prater MD Unavailable Unavailable Hugh Prater MD Unavailable Unavailable Hugh Prater MD Unavailable Unavailable Hugh Prater MD Unavailable Unavailable Hugh Prater MD Unavailable Unavailable Hugh Prater MD Unavailable Unavailable Hugh Prater MD Unavailable Unavailable Hugh Prater MD Unavailable Unavailable Hugh Prater MD Unavailable Unavailable Hugh Prater MD Unavailable Unavailable Hugh Prater MD Unavailable Unavailable Hugh Prater MD Unavailable Unavailable Hugh Prater MD Unavailable Unavailable Hugh Prater MD Unavailable Unavailable MoiHugh MD Unavailable Unavailable MoiHugh MD Unavailable Unavailable MoiHugh MD Unavailable Unavailable MoiHugh MD Unavailable Unavailable MoiHugh MD Unavailable Unavailable MoiHugh MD Unavailable Unavailable MoiHugh MD Unavailable Unavailable Moi S Carlos GOMEZ Unavailable Unavailable MoiHuhg MD Unavailable Unavailable Moi S Carlos GOMEZ Unavailable Unavailable MoiHugh MD Unavailable Unavailable MoiHugh MD Unavailable Unavailable Moi S Carlos GOMEZ Unavailable Unavailable Moi S Carlos GOMEZ Unavailable Unavailable Moi S Carlos GOMEZ Unavailable Unavailable Moi S Carlos GOMEZ Unavailable Unavailable Moi S Carlos GOMEZ Unavailable Unavailable Hugh Prater MD Unavailable Unavailable Hugh Prater MD Unavailable Unavailable Hugh Prater MD Unavailable Unavailable Hugh Prater MD Unavailable Unavailable Hugh Prater MD Unavailable Unavailable Hugh Prater MD Unavailable Unavailable Hugh Prater MD Unavailable Unavailable Hugh Prater MD Unavailable Unavailable Hugh Prater MD Unavailable Unavailable Hugh Prater MD Unavailable Unavailable Logan Foss MD Unavailable Unavailable Logan Foss MD Unavailable Unavailable Logan Foss MD Unavailable Unavailable Logan Foss MD Unavailable Unavailable Logan Foss MD Unavailable Unavailable Logan Foss MD Unavailable Unavailable Logan Foss MD Unavailable Unavailable Logan Foss MD Unavailable Unavailable Logan Foss MD Unavailable Unavailable Logan Foss MD Unavailable Unavailable Logan Foss MD Unavailable Unavailable Logan Foss MD Unavailable Unavailable Logan Foss MD Unavailable Unavailable Logan Foss MD Unavailable Unavailable Logan Foss MD Unavailable Unavailable Logan Foss MD Unavailable Unavailable [place] MD Unavailable Unavailable Logan Foss MD Unavailable Unavailable Logan Foss MD Unavailable Unavailable Logan Foss MD Unavailable Unavailable Logan Foss MD Unavailable Unavailable Logan Foss MD Unavailable Unavailable [place] MD Unavailable Unavailable [place] MD Unavailable Unavailable [place] MD Unavailable Unavailable [place] Logan MD Unavailable Unavailable [place] MD Unavailable Unavailable [place] MD Unavailable Unavailable [place] MD Unavailable Unavailable Logan Foss MD Unavailable Unavailable Re-disclosure Warning The records that you are about to access may contain information from federally-assisted alcohol or drug abuse programs. If such information is present, then the following federally mandated warning applies: This information has been disclosed to you from records protected by federal confidentiality rules (42 CFR part 2). The federal rules prohibit you from making any further disclosure of this information unless further disclosure is expressly permitted by the written consent of the person to whom it pertains or as otherwise permitted by 42 CFR part 2. A general authorization for the release of medical or other information is NOT sufficient for this purpose. The Federal rules restrict any use of the information to criminally investigate or prosecute any alcohol or drug abuse patient.The records that you are about to access may contain highly sensitive health information, the redisclosure of which is protected by Article 27-F of the [facility] Public Health law. If you continue you may have access to information: Regarding HIV / AIDS; Provided by facilities licensed or operated by the [facility] Office of Mental Health; or Provided by the [facility] Office for People With Developmental Disabilities. If such information is present, then the following [facility] mandated warning applies: This information has been disclosed to you from confidential records which are protected by state law. State law prohibits you from making any further disclosure of this information without the specific written consent of the person to whom it pertains, or as otherwise permitted by law. Any unauthorized further disclosure in violation of state law may result in a fine or senior living sentence or both. A general authorization for the release of medical or other information is NOT sufficient authorization for further disc losure. Family History Family Member Name Family Member Gender Family Member Status Date o f Status Description Data Source(s) Unknown Male Problem [facility] ([facility]) Unknown Male Problem [facility] ([facility]) Unknown Male Problem [facility] ([facility]) Unknown Male Problem [facility] ([facility]) from this at age 63 Encounters Encounter Providers Location Date Indications Data Source(s ) Outpatient Attender: Logan Ennis/Prudence/Marco Antonio/Mak batres 06/19/2021 01:10:00 PM EDT [facility] ([facility]) ([facility]) 15min Derm Full Body Skin Exam [address] [place] [address] 06/05/2021 12:00:00 AM EDT eCW1 ([facility]) Outpatient Attender: Elieser Helm 05/09 01:00:00 PM EDT MED[facility] ([facility] ) Outpatient Attender: Carlos Prater MD Main Office 04/18/2021 09:15:00 AM EDT [facility] ([facility]) Outpatient Attender: Elieser Helm 02/16 10:00:00 AM EDT [facility] ([facility] ) Outpatient [address] [facility] [address] 09/01/2020 12:00:00 AM EST eCW1 (Critical access hospital) Immunizations Vaccine Date Status Description Data Source(s) COVID-19 VACCINE Moderna 11/18/2020 12:00:00 AM EST completed [facility] Vaccine Series Complete: YESThis Data wa s Submitted to [facility] Via [facility]. COVID-19 VACCINE Moderna 10/21/2020 12:00:00 AM EST completed [facility] Vaccine Series Complete: NOThis Data was Submitted to [facility] Via [facility]. Medications Medication Brand Name Start Date Product Form Dose Route Admi nistrative Instructions Pharmacy Instructions Status Indications Reaction Description Data Source(s) Fluticasone propionate 0.05 MG/ACTUAT Metered Dose [facility] 50 mcg/actuation FLUTICASONE PROPIONATE 06/20/2021 12:00:00 AM EDT spray,suspension 16 SPRAY 2 SPRAYS IN EACH NOSTRIL ONCE DAILY SPRAY 2 SPRAYS IN EACH NOSTRIL ONCE DAILY SOLD: 06/26/2021 [facility] Fluticasone Propionate Fluticasone Propionate 06/19/2021 12:00:00 AM E DT active MED[facility] ([facility] ) 0.2 % 06/09/2021 12:00:00 AM EDT drops 5 INSTILL ONE DROP IN THE RIGHT EYE TWO TIMES A DAY INSTILL ONE DROP IN THE RIGHT EYE TWO TIMES A DAY SOLD : 06/09/2021 [facility] 1 % 05/23/2021 12:00:00 AM EDT drops,suspension 5 INSTILL 1 DROP IN THE LEFT EYE FOUR TIMES A DAY STARTING THREE DAYS PRIOR TO SURGERY INSTILL 1 DROP IN THE LEFT EYE FOUR TIMES A DAY STARTING THREE DAYS PRIOR TO SURGERY SOLD: 06/30/2021 [facility] Polymyxin B 56320 UNT/ML / Trimethoprim 1 MG/ML Ophthalmic Solution 10,000 unit- 1 mg/mL POLYMYXIN B SULF/TRIMETHOPRIM 05/23/2021 12:00:00 AM EDT drops 1 0 INSTILL 1 DROP IN THE LEFT EYE FOUR TIMES A DAY STARTING 3 DAYS PRIOR TO SURGERY INSTILL 1 DROP IN THE LEFT EYE FOUR TIME S A DAY STARTING 3 DAYS PRIOR TO SURGERY SOLD: 05/23/2021 [facility] 0.4 % 05/23/2021 12:00:00 AM EDT drops 5 INSTILL 1 DROP IN THE LEFT EYE FOUR TIMES A DAY STARTING THREE DAYS PRIOR TO SURGERY INSTILL 1 DROP IN THE LEFT EYE FOUR TIMES A DAY STARTING THREE DAYS PRIOR TO SURGERY SOLD: 05/23/2021 [facility] 0.4 % 05/23/2021 12:00:00 AM EDT drops 5 INSTILL 1 DROP IN THE LEFT EYE FOUR TIMES A DAY STARTING THREE DAYS PRIOR TO SURGERY INSTILL 1 DROP IN THE LEFT EYE FOUR TIMES A DAY STARTING THREE DAYS PRIOR TO SURGERY SOLD: 06/12/2021 [facility] 1 % 05/23/2021 12:00:00 AM EDT drops,suspension 5 INSTILL 1 DROP IN THE LEFT EYE FOUR TIMES A DAY STARTING THREE DAYS PRIOR TO SURGERY INSTILL 1 DROP IN THE LEFT EYE FOUR TIMES A DAY STARTING THREE DAYS PRIOR TO SURGERY SOLD: 05/23/2021 [facility] 1 % 05/23/2021 12:00:00 AM EDT drops,suspension 5 INSTILL 1 DROP IN THE LEFT EYE FOUR TIMES A DAY STARTING THREE DAYS PRIOR TO SURGERY INSTILL 1 DROP IN THE LEFT EYE FOUR TIMES A DAY STARTING THREE DAYS PRIOR TO SURGERY SOLD: 06/12/2021 [facility] Ascorbic Acid 500 MG Oral Tablet Vitamin C 05/09/2021 12:00:00 AM EDT ORAL active MED[facility] ([facility]) 1.479-0.188- 0.225 gram 04/18/2021 12:00:00 AM EDT tablet 24 USE DIRECTED USE DIRECTED SOLD: 04/25/2021 [facility] Sutab Sutab 04/18/2021 12:00:00 AM EDT active MED[facility] ([facility]) ibandronic acid 150 MG Oral Tablet [Boniva] Boniva 02/16/2021 12:00:00 AM EDT ORAL completed [facility] ([facility]) 20 mg 09/12/2020 12:00:00 AM EST tablet 10 TAKE ONE TABLET BY MOUTH TWICE A DAY FOR 5 DAYS TAKE ONE TABLET BY MOUTH TWICE A DAY FOR 5 DAYS SOLD: 2019 [facility] 250 mg 09/12/2020 12:00:00 AM EST tablet 6 TAKE TWO TABLETS BY MOUTH AT ONCE ON THE FIRST DAY THEN TAKE ONE DAILY THEREAFTER TAKE TWO TABLETS BY MOUTH AT ONCE ON THE FIRST DAY THEN TAKE ONE DAILY THEREAFTER SOLD: 09/12/2020 [facility] Azithromycin 250 MG Oral Tablet [Zithromax] Zithromax 06/23/2020 12:00:00 AM EDT active MEDENT ([facility]) 250 mg 06/23/2020 12:00:00 AM EDT tablet 6 TAKE TWO TABLETS BY MOUTH AT ONCE ON THE FIRST DAY THEN TAKE ONE DAILY THEREAFTER TAKE TWO TABLETS BY MOUTH AT ONCE ON THE FIRST DAY THEN TAKE ONE DAILY THEREAFTER SOLD: 06/26/2020 [facility] 100 mg 05/31/2020 12:00:00 AM EDT capsule 90 TAKE ONE CAPSULE BY MOUTH THREE TIMES A DAY TAKE ONE CAPSULE BY MOUTH THREE TIMES A DAY SOLD: 06/04/2020 [facility] 100 mg 05/31/2020 12:00:00 AM EDT capsule 90 TAKE ONE CAPSULE BY MOUTH THREE TIMES A DAY TAKE ONE CAPSULE BY MOUTH THREE TIMES A DAY SOLD: 07/07/2020 [facility] 100 mg 05/31/2020 12:00:00 AM EDT capsule 30 TAKE ONE CAPSULE BY MOUTH THREE TIMES A DAY TAKE ONE CAPSULE BY MOUTH THREE TIMES A DAY SOLD: 11/21/2020 [facility] 25 mg 08/31/2019 12:00:00 AM EST tablet 30 TAKE ONE TABLET BY MOUTH EVERY DAY TAKE ONE TABLET BY MOUTH EVERY DAY SOLD: 06/15/2020 [facility] 25 mg 08/31/2019 12:00:00 AM EST tablet 30 TAKE ONE TABLET BY MOUTH EVERY DAY TAKE ONE TABLET BY MOUTH EVERY DAY SOLD: 05/13/2020 [facility] Insurance Providers Payer name Policy type / Coverage type Policy ID Covered libertarian ID Covered libertarian's relationship to chamberlain Policy [place] Plan Information [facility] [id number] [facility] [id number] [facility] (as Of 2018) Commercial [id number] Family Dependent [id number] [facility] ([place]) [facility] Part B [id number] Family Dependent [id number] Medicare [facility] Medicare Primary [id number] Self 4 [id number] ANSI-Commercial [id number] ANSI-Medicare Part B [id number] [place] (Old) Medigap Part B [id number] Family Dependent [id number] UMR [facility] [id number] [facility] [id number] [place] (Old) [employer] Part B [id number] Family Dependent [id number] [place] (Old) Medigap Part B [id number] Family Dependent [id number] [place] (Old) Commercial [id number] Family Dependent [id number] [employer] PPO O [id number] P [id number] [place] Ppo Commercial [id number] Family Dependent [id number] [place] P[employer] Commercial [id number] Family Dependent [place] Commercial [id number] Family Dependent [place] Commercial [id number] Family Dependent MEDICARE [id number] SP [id number] [facility] [id number] 2 [id number] [facility] [id number] S [id number] MEDICARE C [id number] S [id number] Problems, Conditions, and Diagnoses Code Display Name Description Problem Type Effective Dates Data Source(s) Z85.89 [id number] History of squamous cell carcinoma Prob jose carlos 06/05/2021 12:00:00 AM EDT eCW1 ([facility]) [id number] Screening for malignant neoplasm of colo n Screening for malignant neoplasm of colon Problem 04/18/2021 12:00:00 AM EDT MED[facility] ([facility]) Surgeries/Procedures Procedure Description Date Indications Data Source(s) OFFICE OUTPATIENT NEW 45 MINUTES 06/19/2021 12:00:00 A M EDT [facility] ([facility] ) OFFICE OUTPATIENT VISIT 25 MINUTES 05/09/2021 12:00:00 AM EDT MED[facility] ([facility]) ECG ROUTINE ECG W/LEAST 12 LDS W/I&R 05/09/2021 12:00: 00 AM EDT MED[facility] ([facility]) OFFICE OUTPATIENT VISIT 15 MINUTES 04/18/2021 12:00:00 AM EDT MED[facility] ([facility]) OFFICE OUTPATIENT VISIT 25 MINUTES 02/16/2021 12:00:00 AM EDT MED[facility] ([facility]) MANUAL THERAPY TQS 1/> REGIONS EACH 15 MINUTES 021 12:00:00 AM EDT MED[facility] ([facility]) THERAPEUTIC PX 1/> AREAS EACH 15 MIN EXERCISES 021 12:00:00 AM EDT MED[facility] ([facility]) MANUAL THERAPY TQS 1/> REGIONS EACH 15 MINUTES 12:00:00 AM EDT MED[facility] ([facility]) THERAPEUTIC PX 1/> AREAS EACH 15 MIN EXERCISES 021 12:00:00 AM EDT MED[facility] ([facility]) THERAPEUTIC PX 1/> AREAS EACH 15 MIN EXERCISES 021 12:00:00 AM EDT MEDENT ([facility]) MANUAL THERAPY TQS 1/> REGIONS EACH 15 MINUTES 12:00:00 AM EDT MED[facility] ([facility]) THERAPEUTIC PX 1/> AREAS EACH 15 MIN EXERCISES 12:00:00 AM EST [facility] ([facility]) MANUAL THERAPY TQS 1/> REGIONS EACH 15 MINUTES 12:00:00 AM EST [facility] ([facility]) THERAPEUTIC PX 1/> AREAS EACH 15 MIN EXERCISES 12:00:00 AM EST [facility] ([facility]) MANUAL THERAPY TQS 1/> REGIONS EACH 15 MINUTES 12:00:00 AM EST [facility] ([facility]) THERAPEUTIC PX 1/> AREAS EACH 15 MIN EXERCISES 12:00:00 AM EST [facility] ([facility]) MANUAL THERAPY TQS 1/> REGIONS EACH 15 MINUTES 12:00:00 AM EST [facility] ([facility]) THERAPEUTIC PX 1/> AREAS EACH 15 MIN EXERCISES 12:00:00 AM EST [facility] ([facility]) MANUAL THERAPY TQS 1/> REGIONS EACH 15 MINUTES 12:00:00 AM EST [facility] ([facility]) THERAPEUTIC PX 1/> AREAS EACH 15 MIN EXERCISES 12:00:00 AM EST [facility] ([facility]) MANUAL THERAPY TQS 1/> REGIONS EACH 15 MINUTES 021 12:00:00 AM EST [facility] ([facility]) THERAPEUTIC PX 1/> AREAS EACH 15 MIN EXERCISES 021 12:00:00 AM EST [facility] ([facility]) MANUAL THERAPY TQS 1/> REGIONS EACH 15 MINUTES 021 12:00:00 AM EST [facility] ([facility]) THERAPEUTIC PX 1/> AREAS EACH 15 MIN EXERCISES 021 12:00:00 AM EST [facility] ([facility]) MANUAL THERAPY TQS 1/> REGIONS EACH 15 MINUTES 021 12:00:00 AM EST [facility] ([facility]) THERAPEUTIC PX 1/> AREAS EACH 15 MIN EXERCISES 12:00:00 AM EST [facility] ([facility] MANUAL THERAPY TQS 1/> REGIONS EACH 15 MINUTES 021 12:00:00 AM EST [facility] ([facility]) MANUAL THERAPY TQS 1/> REGIONS EACH 15 MINUTES 021 12:00:00 AM EST [facility] ([facility] ) MANUAL THERAPY TQS 1/> REGIONS EACH 15 MINUTES 021 12:00:00 AM EST [facility] ([facility]) APPLICATION MODALITY 1/> AREAS HOT/COLD PACKS 10/21/19 12:00:00 AM EST [facility] ([facility]) THERAPEUTIC PX 1/> AREAS EACH 15 MIN EXERCISES 12:00:00 AM EST [facility] ([facility] ) MANUAL THERAPY TQS 1/> REGIONS EACH 15 MINUTES 021 12:00:00 AM EST [facility] ([facility] ) THERAPEUTIC PX 1/> AREAS EACH 15 MIN EXERCISES 12:00:00 AM EST [facility] ([facility] ) MANUAL THERAPY TQS 1/> REGIONS EACH 15 MINUTES 021 12:00:00 AM EST [facility] ([facility] ) Bone Mineral Density Test 10/18/2020 12:00:00 AM EST [facility] ([facility]) THERAPEUTIC PX 1/> AREAS EACH 15 MIN EXERCISES 021 12:00:00 AM EST [facility] ([facility] ) MANUAL THERAPY TQS 1/> REGIONS EACH 15 MINUTES 021 12:00:00 AM EST [facility] ([facility]) THERAPEUTIC PX 1/> AREAS EACH 15 MIN EXERCISES 021 12:00:00 AM EST [facility] ([facility]) MANUAL THERAPY TQS 1/> REGIONS EACH 15 MINUTES 021 12:00:00 AM EST [facility] ([facility]) THERAPEUTIC PX 1/> AREAS EACH 15 MIN EXERCISES 021 12:00:00 AM EST [facility] ([facility] ) MANUAL THERAPY TQS 1/> REGIONS EACH 15 MINUTES 021 12:00:00 AM EST [facility] ([facility]) THERAPEUTIC PX 1/> AREAS EACH 15 MIN EXERCISES 021 12:00:00 AM EST [facility] ([facility]) MANUAL THERAPY TQS 1/> REGIONS EACH 15 MINUTES 021 12:00:00 AM EST [facility] ([facility]) THERAPEUTIC PX 1/> AREAS EACH 15 MIN EXERCISES 021 12:00:00 AM EST [facility] ([facility]) MANUAL THERAPY TQS 1/> REGIONS EACH 15 MINUTES 021 12:00:00 AM EST [facility] ([facility]) THERAPEUTIC PX 1/> AREAS EACH 15 MIN EXERCISES 021 12:00:00 AM EST [facility] ([facility]) MANUAL THERAPY TQS 1/> REGIONS EACH 15 MINUTES 021 12:00:00 AM EST [facility] ([facility]) MANUAL THERAPY TQS 1/> REGIONS EACH 15 MINUTES 021 12:00:00 AM EST [facility] ([facility]) Physical Therapy Eval - Low Complexity 10/03/2020 12:0 0:00 AM EST [facility] ([facility]) RADEX SPINE THORACIC 2 VIEWS 09/23/2020 12:00:00 AM ES T [facility] ([facility]) Results ID Date Data Source [id number] 06/05/2021 09:20:00 AM EDT [facility] Name Value Range Interpretation Code Description Data Lesly rce(s) Supporting Document(s) SARS-CoV-2 (COVID-19) RNA [Presence] in Respiratory specimen by FILIPE with probe detection Not Detected [facility] This lab was ordered by [facility] and reported by [email or web address]. ID Date Data Source [id number] 02/15/2021 08:54:00 AM EDT MED[facility] ([facility]) Name Value Range Interpretation Code Description Data Lesly rce(s) Supporting Document(s) Thyroxine (T4) free [Mass/volume] in Serum or Plasma 0.69 ng/dL 0.76- 1.46 [facility] ID Date Data Source [id number] 02/15/2021 08:53:00 AM EDT MED[facility] ([facility]) Name Value Range Interpretation Code Description Data Lesly rce(s) Supporting Document(s) Thyrotropin [Units/volume] in Serum or Plasma by Detec tion limit <= 0.05 mIU/L 4.74 uIU/mL 0.36-3.74 [facility] ID Date Data Source [id number] 02/15/2021 08:53:00 AM EDT [facility] Name Value Range Interpretation Code Description Data Lesly rce(s) Supporting Document(s) Cholesterol [Mass/volume] in Serum or Plasma 160 mg/dL 131-200 [facility] ([facility]) Triglyceride [Mass/volume] in Serum or Plasma 39 mg/dL 30-150 [facility] ([facility]) Cholesterol in HDL [Mass/volume] in Serum or Plasma 56 mg/dL 35-60 [facility] ([facility]) Cholesterol in LDL [Mass/volume] in Serum or Plasma by calcu lation 96 CALC 50-159 [facility] ([facility]) ID Date Data Source [id number] 02/15/2021 08:53:00 AM EDT [facility] ([facility]) Name Value Range Interpretation Code Description Data Lesly rce(s) Supporting Document(s) Glucose [Mass/volume] in Serum or Plasma 84 mg/dL 74-99 [facility] ([facility]) 100-125 mg/dL PRE-DIABETES/FASTING >126 mg/dL DIABETES/FASTING Creatinine 0.8 mg/dL 0.6-1.3 [facility]) Urea nitrogen [Mass/volume] in Serum or Plasma 19 mg/dL 7-18 [facility] ([facility]) Sodium [Moles/volume] in Serum or Plasma 143 meq/L 136-145 [facility] ([facility]) Potassium [Moles/volume] in Serum or Plasma 4.4 meq/L 3.5-5.1 [facility] ([facility]) Carbon dioxide, total [Moles/volume] in Serum or Plasma 35 meq/L 21 -32 [facility] ([facility]) Chloride [Moles/volume] in Serum or Plasma 105 meq/L 98-107 [facility] ([facility]) Alkaline phosphatase isoenzyme [Units/volume] in Serum or Pl asma 152 mg/dL 46-116 [facility] ([facility]) Calcium [Mass/volume] in Serum or Plasma 9.0 mg/dL 8.5-10.1 [facility] ([facility]) Total Bilirubin 0.3 mg/dL 0.2-1.0 [facility] ([facility]) Aspartate aminotransferase [Enzymatic activity/volume] in Serum or Plasma 23 U/L 15-37 [facility] ([facility] ) Alanine aminotransferase [Enzymatic activity/volume] in Seru m or Plasma 33 U/L 12-78 [facility] ([facility]) Albumin [Mass/volume] in Serum or Plasma 4.3 g/dL 3.4-5.0 [facility] ([facility]) A/G Ratio 1.79 CALC 1.00-1.90 [facility]) Proteinase 3 Ab [Units/volume] in Serum 6.7 g/dL 6.4-8.2 [facility] ([facility]) Glomerular filtration rate/1.73 sq M pre dicted among blacks [Volume Rate/Area] in Serum or Plasma by Creatinine-based formula (MDRD) Laboratory test [facility] <content>CHRONIC KIDNEY DISEASE STAGING PER NKF</content>
<content></content>
<content>STAGE I & II GFR >= 60 NORMAL TO MILDLY DECREASED</content>
<content>STAGE III GFR 30-59 MODERATELY DECREASED</content>
<content>STAGE IV GFR 15-29 SEVERELY DECREASED</content>
<content>STAGE V GFR <15 VERY LITTLE GFR LEFT</content>
<content>ESRD GFR <15 ON PHOTOVOLTAIC TECHNICIAN</content>
<content></content> Glomerular filtration rate/1.73 sq M pre dicted among non-blacks [Volume Rate/Area] in Serum or Plasma by Creatinine-based formula (MDRD) Laboratory test result [facility] ID Date Data Source [id number] 10/18/2020 12:00:00 AM EST [facility] Imaging Geo Yee MD Patient Name: [facility] Date of : [address] [facility] Date of Exam: 10/18/2020SHAYLA Ochoa [id number]#: Fax: [phone] EXAM: MRI THORACIC SPINE WITHOUT CONTRASTPROCEDURE INFORMATION:Exam: MR Thoracic Spine Without ContrastExam date and time: 10/18/2020 10:46 AM Age: 65 years oldClinical indication: Injury or trauma; Fall; Blunt trauma (contusions orhematomas)TECHNIQUE: Imaging protocol: Multiplanar magnetic resonance images of thethoracic spine without intravenous contrast.COMPARISON: CT THORAX WITH CONTRAST 06/23/2015 2:27:[address] THORAX WITHCONTRAST 10/04/2020 12:06:03 PM CR CHEST (2 VIEW) X-RAY 09/23/2020 3:03:23 PMFINDINGS:Vertebrae: There is anterior wedge compression of superior endplate T7 withapproximately 1/3 anterior height loss and no significant posterior heightloss or bony retropulsion. There is abnormal marrow signal predominantlyincreased STIR and decreased T1 consistent with edema/granulation tissueand given that this was present on chest x-ray 09/23/2020, this is consistentwith acute to subacute age fracture. Fall was reportedly recent at timecomparison chest x-ray. There was also prevertebral soft tissue swelling atT7 on prior chest CT and superior endplate compression fracturedemonstrated. Anterior wedging on MRI does not appear significantly changedfrom CT. No evidence of edema in posterior elements or pedicles. Rem ainingvertebral body heights are maintained.Minimal endplate degenerative marrow changes. There is thoracic discdesiccation.Spinal cord: Discs/Spinal canal/Neural foramina: T7-T8 shows a central discprotrusion measuring approximately 3.5 mm anterior-posterior dimension.This contacts the ventral spinal cord without minimal ventral cordflattening and without significant overall spinal stenosis. T5-T6 showsfocal 2.4 mm central protrusion contacting and slightly flattening theventral spinal cord. No overall spinal stenosis. These 2 larger protrusionslikely present on prior CT. T3-T4 shows approximately 2 mm central discbulge versus protrusion and T2-T3 shows approximately 1 mm central discbulge or protrusion without cord deformity or spinal stenosis. The smallerprotrusions would not be well visualized with CT. Other levels do not showsignificant bulging or protrusion. Neural foramen appear patent.Soft tissues: There is approximately 1.8 cm cyst in dome of liver whichmeasured approximately 1.[address]IMPRESSION:1. Anterior wedge compression fracture at T7 consistent with acute tosubacute compression fracture.2. Several disc protrusions as described.Thank you for allowing us to participate in the care of your patient.Dictated and Authenticated by: Greta Negron MD 10/18/2020 12:10 PMEastern Time ([place] & Ever)MichaelV/jmcTrosalia you for referring RONNELL JACOBSEN to our office. Electronically Signed - IMCHAEL 10/18/20 12:23 Name Value Range Interpretation Code Description Data Lesly rce(s) Supporting Document(s) ID Date Data Source [id number] 10/04/2020 12:00:00 AM EST [facility] Imaging Elieser Coffey MD Patient Name: RONNELL [id number] [facility] Date of : 1955[address] Date [facility] Exam: [facility] [place] [id number]#: fax: [phone] EXAM: CT THORAX WITH CONTRASTCLINICAL INFORMATION: Followup plain film finding of a new retrosternalclear space opacity seen on the plain film examination of 09/23/2020 whichwas also reviewed today.Low dose [address] scanning of the chest was obtained using 3 mmincrements after the administration of intravenous contrast andreconstructed in both coronal and sagittal scan planes. 75 cc of [id number] was administered intravenously.There is no mediastinal or hilar adenopathy. There are no pleural orpericardial effusions. The imaged upper abdomen is unchanged. Note is againmade of an hepatic cyst.Since the last CT a grade 2 superior endplate compression deformity hasdeveloped involving T7. Evaluation of the lung kinney shows no new abnormalnodules, masses, or opacities.IMPRESSION:1. The plain film finding like ly represented a small focal area ofsubsegmental atelectatic change or a small compilation of an area offibrotic change. The lung kinney are unchanged from the prior exam.2. T7 vertebral body compression fracture as described above. The exact ageof this can not be determined by this exam. It was not present on the priorCT.3. Other findings as described above.The latest prior CT chest for comparison 06/23/2015.PERLA Castrejon/Kris ugalde for referring RONNELL JACOBSEN to our office. Electronically Signed - AALIYAH WILBURN DO 10/04/20 17:59 Name Value Range Interpretation Code Description Data Lesly rce(s) Supporting Document(s) ID Date Data Source [id number] 09/27/2020 11:15:00 AM EST [facility] ([facility]) Name Value Range Interpretation Code Description Data Lesly rce(s) Supporting Document(s) Urea nitrogen [Mass/volume] in Serum or Plasma 16 mg/dL 7-18 [facility] ([facility]) Glucose [Mass/volume] in Serum or Plasma 83 mg/dL 74-99 [facility] ([facility]) 100-125 mg/dL PRE-DIABETES/FASTING >126 mg/dL DIABETES/FASTING Sodium [Moles/volume] in Serum or Plasma 141 meq/L 136-145 [facility] ([facility]) Creatinine 0.7 mg/dL 0.6-1.3 [facility] ([facility]) Potassium [Moles/volume] in Serum or Plasma 4.0 meq/L 3.5-5.1 [facility] ([facility]) Chloride [Moles/volume] in Serum or Plasma 103 meq/L 98-107 [facility] ([facility]) Carbon dioxide, total [Moles/volume] in Serum or Plasma 31 meq/L 21 -32 [facility] ([facility]) Glomerular filtration rate/1.73 sq M pre dicted among non-blacks [Volume Rate/Area] in Serum or Plasma by Creatinine-based formula (MDRD) Laboratory test result [facility] ([facility] ) Calcium [Mass/volume] in Serum or Plasma 8.9 mg/dL 8.5-10.1 [facility] ([facility]) Glomerular filtration rate/1.73 sq M pre dicted among blacks [Volume Rate/Area] in Serum or Plasma by Creatinine-based formula (MDRD) Laboratory test result [facility] <content>CHRONIC KIDNEY DISEASE STAGING PER NKF</content>
<content></content>
<content>STAGE I & II GFR >= 60 NORMAL TO MILDLY DECREASED</content>
<content>STAGE III GFR 30-59 MODERATELY DECREASED</content>
<content>STAGE IV GFR 15-29 SEVERELY DECREASED</content>
<content>STAGE V GFR <15 VERY LITTLE GFR LEFT</content>
<content>ESRD GFR <15 ON PHOTOVOLTAIC TECHNICIAN</content>
<content></content> ID Date Data Source [id number] 09/23/2020 12:00:00 AM EST [facility] o[facility] Imaging Geo Yee MD Patient Name: [facility] Date of : [address] [facility] Date of Exam: 09/23/2020SHAYLA Ochoa [id number]#: Fax: [phone] EXAM: CHEST (2 VIEW) X-RAYCLINICAL INFORMATION: Cough.Two views. These images were obtained using digital radiography.Comparison 03/07/2015, the latest prior.The cardiomediastinal silhouette is unchanged and again seen to be withinnormal limits. The heart is not enlarged. The pleural angles are sharp.Seen only on the lateral view in the inferior retrosternal clear space,there is an asymmetric density which abuts the anterior pleural surface.This represents a change from the prior exam. No other abnormal opacitieshave developed. The lateral view shows a Grade II anterior wedge deformityof what is likely T7.IMPRESSION:1. Abnormal retrosternal clear space opacity and representing a changefrom the prior exam. Contrast enhanced CT examination of the chest isrecommended.2. Vertebral body abnormality as described above the age of which cannotbe determined by this exam. If an acute compression deformity of thethoracic spine is of clinical concern, then I would recommend followup withMRI. There are no more recent chest radiographs to review and there are nothoracic spine radiographs to review.PERLA Castrejon/Michael you for referring RONNELL JACOBSEN to our office. Electronically Signed - AALIYAH WILBURN DO 09/23/20 17:10 Name Value Range Interpretation Code Description Data Lesly rce(s) Supporting Document(s) ID Date Data Source [id number] 09/12/2020 12:00:00 AM EST [facility] Name Value Range Interpretation Code Description Data Lesly rce(s) Supporting Document(s) SARS coronavirus 2 Ag [facility] This lab was ordered by [facility] and reported by [facility]. Procedure Social History No Information Vital Signs ID Date Data Source UNK Name Value Range Interpretation Code Description Data Source(s) Body height 66 [in_i] 66 [in_i] [facility] ([facility]) 5'6" Body weight 123.00 [lb_av] 123.00 [lb_av] [facility] T ([facility]) Body mass index (BMI) [Ratio] 19.9 kg/m2 19.9 k g/m2 [facility] ([facility]) [place] body weight 130 [lb_av] 130 [lb_av[facility] Body weight 55.793 kg 55.793 kg [facility] ([facility]) Body surface area Derived from formula 1.63 m2 1.63 m2 [facility] ([facility]) Body weight 123.4 [lb_av] 123.4 [lb_av] W1 ([facility]) Body weight 55.97 kg 55.97 kg W1 ([facility]) Body height [in_i] eCW1 ([facility]) Body mass index (BMI) [Ratio] 19.62 kg/m2 19.62 kg/m2 eCW1 ([facility]) Systolic blood pressure 122 mm[Hg] 122 mm[Hg] e CW1 ([facility]) Diastolic blood pressure 70 mm[Hg] 70 mm[Hg] eCW1 ([facility]) Body mass index (BMI) [Ratio] 19.9 kg/m2 19.9 k g/m2 [facility] ([facility]) Body weight 123.00 [lb_av] 123.00 [lb_av] [facility] T ([facility]) Body height 66 [in_i] 66 [in_i] [facility] ([facility]) 5'6" Diastolic blood pressure 62 mm[Hg] 62 mm[Hg] [facility] ([facility]) Systolic blood pressure 126 mm[Hg] 126 mm[Hg] M [facility] ([facility]) Heart rate 64 /min 64 /min [facility] Body height 66 [in_i] 66 [in_i] [facility] 5'6" Body weight 123.00 [lb_av] 123.00 [lb_av] [facility] T ([facility]) Systolic blood pressure 126 mm[Hg] 126 mm[Hg] M [facility] ([facility]) Diastolic blood pressure 63 mm[Hg] 63 mm[Hg] [facility] ([facility]) Heart rate 69 /min 69 /min [facility]) Body mass index (BMI) [Ratio] 19.9 kg/m2 19.9 k g/m2 [facility] ([facility]) Body weight 55.793 kg 55.793 kg [facility] Body temperature 96.8 [degF] 96.8 [degF] [facility] ([facility]) Body mass index (BMI) [Ratio] 20.2 kg/m2 20.2 k g/m2 [facility] ([facility]) Diastolic blood pressure 68 mm[Hg] 68 mm[Hg] [facility] ([facility]) Body weight 125.00 [lb_av] 125.00 [lb_av] [facility] T ([facility]) Systolic blood pressure 120 mm[Hg] 120 mm[Hg] M [facility] ([facility]) Heart rate 62 /min 62 /min [facility] ([facility]) Body height 66 [in_i] 66 [in_i] [facility] ([facility]) 5'6" Body weight 123 [lb_av] 123 [lb_av] eCW1 ([facility]) Body height [in_i] eCW1 ([facility]) Body mass index (BMI) [Ratio] 19.55 kg/m2 19.55 kg/m2 [facility] ([facility])
[2021-07-10] MEDS ORDERED: LIDOCAINE 2% 100MG/5ML SDV (FOR ANES.) As Ordered ONE (08:01)
[2021-07-10] MEDS ORDERED: propofoL 200 MG/20 ML VIAL As Ordered ONE (08:01)
--- NOTE | 2021-07-10 08:55 | ROOR ---
Patient Name: Jem Rajput Procedure Date: 07/10/2021 8:30 AM Date of : 1955 Age: 65 Room: [facility] Gender: Female Note Status: Finalized Procedure: Total Colonoscopy to Cecum Indications: High risk colon cancer surveillance: Personal history of colonic polyps, Last colonoscopy: 2015 Providers: Carlos Prater MD Referring MD: Elieser Coffey MD Requesting Provider: Medicines: Monitored Anesthesia Care Complications: No immediate complications. Procedure: Pre-Anesthesia Assessment: - The heart rate, respiratory rate, oxygen saturations, blood pressure, adequacy of pulmonary ventilation, and response to care were monitored throughout the procedure. The Colonoscope was introduced through the anus and advanced to the cecum, identified by appendiceal orifice and ileocecal valve. Findings: The perianal and digital rectal examinations were normal. Non-bleeding internal hemorrhoids were found during retroflexion. The hemorrhoids were small and Grade I (internal hemorrhoids that do not prolapse). No other significant abnormalities were identified in a careful examination of the remainder of the colon. The exam was otherwise without abnormality on direct and retroflexion views. Impression: - Non-bleeding internal hemorrhoids. - The examination was otherwise normal on direct and retroflexion views. - No specimens collected. - The exam was otherwise normal to the cecum. Recommendation: - Patient has a contact number available for emergencies. The signs and symptoms of potential delayed complications were discussed with the patient. Return to normal activities tomorrow. Written discharge instructions were provided to the patient. - High fiber diet. - Discharge patient to home. - Continue present medications. - Repeat colonoscopy in 5 years for surveillance. - Return to referring physician. - The findings and recommendations were discussed with the patient. Procedure Code(s): --- Professional --- G0105, Colorectal cancer screening; colonoscopy on individual at high risk Diagnosis Code(s): --- Professional --- Z86.010, Personal history of colonic polyps K64.0, First degree hemorrhoids CPT copyright 2019 [employer]. All rights reserved. The codes documented in this report are preliminary and upon floating operator review may be revised to meet current compliance requirements. Carlos Prater MD Carlos Prater MD 07/10/2021 8:55:29 AM Electronically signed by Carlos Prater MD Number of Addenda: 0 Note Initiated On: 07/10/2021 8:30 AM Estimated Blood Loss: Estimated blood loss: none.
[2021-07-10 09:22] VITALS: BP 127/71
== END 2021-07-10 09:30 | disposition home or self-care (01) ==
LOC: M OPP 07:29
PROVIDERS: ATTEND Internal Medicine Gastroenterology
DX: Z12.11 Encounter for screening for malignant neoplasm of colon (principal); Z86.010 Personal history of colon polyps; Z80.0 Family history of malignant neoplasm of digestive organs; Z79.899 Other long term (current) drug therapy; Z88.1 Allergy status to other antibiotic agents

== ENCOUNTER → 2021-08-21 | Outpatient (REF) | payer MEDICARE, OTHER ==
[~2021-08-21] MED LIST changes: -NS 1,000 ML IV ONE
[2021-08-21 19:40] LABS: PHENYTOIN (DILANTIN) 12.2 UG/ML (10.0-20.0)
[2021-08-21 20:02] LABS: FREE T3 2.9 PG/ML (2.2-4.0)
[2021-08-21 20:29] LABS: % LABILE ALKALINE PHOSPHATASE 13.11 %
== END ==
LOC: M LAB REF 16:27
PROVIDERS: ATTEND Family Medicine
DX: E07.9 Disorder of thyroid, unspecified (principal); R74.8 Abnormal levels of other serum enzymes; G40.409 Other generalized epilepsy and epileptic syndromes, not intractable, without status epilepticus

== ENCOUNTER → 2021-10-04 | Outpatient (CLI) | payer MEDICARE, OTHER | LOC: M LABSMTC 13:30 | PROVIDERS: ATTEND Pediatrics | DX: Z20.822 Contact with and (suspected) exposure to COVID-19 (principal) | CPT/HCPCS: C9803; U0003 ==

== ENCOUNTER → 2021-10-13 | Outpatient (REF) | payer MEDICARE, OTHER | LOC: M LAB REF 14:30 | PROVIDERS: ATTEND Nurse Practitioner Family | DX: L57.0 Actinic keratosis (principal) ==

== ENCOUNTER → 2022-02-22 | Outpatient (REF) | payer MEDICARE, OTHER | LOC: M LAB REF 12:36 | PROVIDERS: ATTEND Family Medicine | DX: R94.5 Abnormal results of liver function studies (principal); K76.9 Liver disease, unspecified ==

== ENCOUNTER → 2022-09-20 | Outpatient (REF) | payer MEDICARE, OTHER | LOC: M SFHCDERM 15:52 | PROVIDERS: ATTEND Nurse Practitioner Family | DX: L57.0 Actinic keratosis (principal) ==

== ENCOUNTER → 2023-02-14 | Outpatient (REF) | payer MEDICARE, OTHER | LOC: M LAB REF 12:22 | PROVIDERS: ATTEND Family Medicine | DX: R74.01 Elevation of levels of liver transaminase levels (principal) ==

== ENCOUNTER → 2023-07-23 | Outpatient (CLI) | payer MEDICARE, OTHER | LOC: M WHC 12:41 | PROVIDERS: ATTEND Family Medicine | DX: Z12.31 Encounter for screening mammogram for malignant neoplasm of breast (principal) ==

== ENCOUNTER → 2023-07-30 | Outpatient (CLI) | payer MEDICARE, OTHER | LOC: M RAD 09:50 | PROVIDERS: ATTEND Orthopaedic Surgery | DX: M76.21 Iliac crest spur, right hip (principal); M48.54XD Collapsed vertebra, not elsewhere classified, thoracic region, subsequent encounter for fracture with routine healing | CPT/HCPCS: 78315; A9503 ==

== ENCOUNTER → 2023-07-31 | Outpatient (CLI) | payer MEDICARE, OTHER ==
[~2023-07-31] MED LIST changes: +PROHANCE 279.3MG/ML 5ML VIAL ONE
== END ==
LOC: M PLAIMG 10:05
PROVIDERS: ATTEND Orthopaedic Surgery
DX: M76.21 Iliac crest spur, right hip (principal)
CPT/HCPCS: 72192; 72197; A9576

== ENCOUNTER → 2023-08-05 | Outpatient (REF) | payer MEDICARE, OTHER ==
[~2023-08-05] MED LIST changes: -PROHANCE 279.3MG/ML 5ML VIAL ONE
== END ==
LOC: M LAB REF 12:33
PROVIDERS: ATTEND Family Medicine
DX: R56.9 Unspecified convulsions (principal); Z79.899 Other long term (current) drug therapy

== ENCOUNTER → 2024-04-08 | Outpatient (REF) | payer MEDICARE, OTHER ==
[~2024-04-08] MED LIST changes: +CENT1TAB PO; +OCUV1CHW PO; +VIT1TABL22 PO
== END ==
LOC: M SFHCDERM 17:41
PROVIDERS: ATTEND Physician Assistant
DX: B07.9 Viral wart, unspecified (principal)

== ENCOUNTER → 2024-07-27 | Outpatient (CLI) | payer MEDICARE, OTHER | LOC: M WHC 11:22 | PROVIDERS: ATTEND Family Medicine | DX: Z12.31 Encounter for screening mammogram for malignant neoplasm of breast (principal) ==

== ENCOUNTER → 2024-11-03 | Outpatient (REF) | payer MEDICARE, OTHER | LOC: M LAB REF 12:08 | PROVIDERS: ATTEND Family Medicine | DX: E07.9 Disorder of thyroid, unspecified (principal) ==

== ENCOUNTER → 2024-12-07 | Outpatient (REF) | payer MEDICARE, OTHER | LOC: M SFHCDERM 16:30 | PROVIDERS: ATTEND Physician Assistant | DX: D49.2 Neoplasm of unspecified behavior of bone, soft tissue, and skin (principal); L82.1 Other seborrheic keratosis ==

== ENCOUNTER → 2025-06-10 | Outpatient (CLI) | payer MEDICARE, OTHER | LOC: M WHC 07:35 | PROVIDERS: ATTEND Family Medicine | DX: R74.8 Abnormal levels of other serum enzymes (principal); N28.1 Cyst of kidney, acquired; K76.89 Other specified diseases of liver ==

== ENCOUNTER 2025-08-04 07:49 | Day surgery (SDC) | payer MEDICARE, OTHER ==
[~2025-08-04] VITALS: Ht 167.6 cm; Wt 54.0 kg
[~2025-08-04 07:49] MED LIST changes: +CALC600T60 PO; +CART1TAB2 PO; +LEVO25TA5 PO
[2025-08-04] MEDS ORDERED: SIMETHICONE 40MG/0.6ML DROPS 30ML As Ordered ONE (07:50)
[2025-08-04 08:52] VITALS: TEMP 97.9
[2025-08-04 09:15] VITALS: BP 149/67; O2SAT 95
== END 2025-08-04 09:20 | disposition home or self-care (01) ==
LOC: M OPP 07:49
PROVIDERS: ATTEND Internal Medicine Gastroenterology
DX: Z12.11 Encounter for screening for malignant neoplasm of colon (principal); K64.0 First degree hemorrhoids; Z86.0100 Personal history of colon polyps, unspecified; Z88.2 Allergy status to sulfonamides; Z79.899 Other long term (current) drug therapy; R56.9 Unspecified convulsions; Z80.0 Family history of malignant neoplasm of digestive organs

== ENCOUNTER → 2025-08-20 | Outpatient (CLI) | payer MEDICARE, OTHER | LOC: M WHC 09:49 | PROVIDERS: ATTEND Family Medicine | DX: Z12.31 Encounter for screening mammogram for malignant neoplasm of breast (principal); R92.323 Mammographic fibroglandular density, bilateral breasts ==

== ENCOUNTER → 2025-09-14 | Outpatient (CLI) | payer MEDICARE, OTHER | LOC: M WUC 13:56 | PROVIDERS: ATTEND Family Medicine | DX: M43.8X4 Other specified deforming dorsopathies, thoracic region (principal); M54.6 Pain in thoracic spine; R05.9 Cough, unspecified ==